=== PATIENT | female | born 1960 | race Caucasian/White ===

== ENCOUNTER 2016-04-08 10:31 | Inpatient (IN) | payer MEDICAID ==
--- NOTE | 2016-04-08 12:08 | RADIOLOGY REPORT ---
HISTORY: Tremor. Fall. Pain. COMPARISON: None FINDINGS: Single portable AP view of the chest was obtained. Cardiomediastinal silhouette is not enlarged. The trachea is midline. Aortic knob is not enlarged. Pu lmonary vascularity is within normal limits. Lungs are adequately aerated. There is no confluent infiltrate or consolidation. There is mild inters titial thickening. No pneumothorax or pleural effusion. There is linear opacification at the left bas e suggestive of platelike atelectasis. . IMPRESSION: 1. Late like atelectasis left base. 2. No confluent infiltrate. Final Electronic Signature: This report was electronically signed by Hunter Avila MD on 04/08/2016 12 :05 PM. [facility] /
[2016-04-08] MEDS ORDERED: MULTIVITAMINS 10 ML VIAL IV ONE (12:13)
[2016-04-08] MEDS ORDERED: THIAMINE HCL 200 MG/2 ML VIAL ONE (12:13)
[2016-04-08] MEDS ORDERED: MAGNESIUM SULFATE 1 GM/2 ML VIAL ONE (12:13)
[2016-04-08] MEDS ORDERED: NORMAL SALINE 1,000 ML IV ONE (12:13)
--- NOTE | 2016-04-08 12:15 | CT REPORT ---
HISTORY: Pain. Fall. COMPARISON: None. TECHNIQUE: This examination was performed using automated exposure control, adjustment of mA or kV according to patient size, and/or use of iterative reconstruction technique. Multiple contiguous axial slices wer e obtained through the thoracic spine without contrast, sagittal and coronal reformations were obtain ed. FINDINGS: The thoracic vertebral body heights are maintained. There is no compression deformity. There is no p aravertebral soft tissue swelling. The vertebral body alignment is maintained. There is no listhesis . There is no lytic or sclerotic lesion. The posterior bony elements appear intact. The facets are in alignment. There is no gross soft tissue abnormality. The disc spaces are adequately maintained. There are degenerative changes with endplate sclerosis and marginal osteophytes throughout the mid t horacic spine from T6-T7 through T10-T11. Visualized portions of the central canal and neural foramin a are adequately maintained. There is subsegmental airspace opacification in the medial basilar segments of both lower lobes suspi cious for infiltrate or pneumonitis. IMPRESSION: 1. No fracture or acute bony abnormality. 2. Degenerative disease in the mid lower thoracic spine. 3. Alveolar opacities in the medial basilar segments of both lower lobe suspicious for infiltrates or pneumonitis. Final Electronic Signature: This report was electronically signed by Hunter Avila MD on 04/08/2016 12 :13 PM. [facility] /
--- NOTE | 2016-04-08 12:19 | CT REPORT ---
HISTORY: Trauma COMPARISON: None. TECHNIQUE: This examination was performed using automated exposure control, adjustment of mA or kV according to patient size, and/or use of iterative reconstruction technique. Axial thin section images obtained f rom skull base through head of the clavicles. Sagittal and coronal reformat images obtained. FINDINGS: The cervical vertebral body heights are maintained. There is no compression deformity. The alignment is maintained. There is no listhesis. There is straightening of the normal cervical lordosis. There is no prevertebral soft tissue swelling. The cervical cephalic alignment is maintained. The odontoid and ring of C1 are intact. Posterior bony elements appear intact. The facets are in alignment. The re is multilevel degenerative disease with disc space and, endplate sclerosis and marginal osteophyte s at C3-4, C4-5, C5-6, and C6-7. The changes are most severe at C5-6 and C6-7. There is narrowing of the central canal and neural foramina bilaterally at C5-6. IMPRESSION: Multilevel level degenerative disc disease from C3-4 through C6-7. The changes are most severe at C5- 6. No acute bony abnormality. Final Electronic Signature: This report was electronically signed by Hunter Avila MD on 04/08/2016 12 :17 PM. [facility] /
[2016-04-08] MEDS ORDERED: LORazepam 0.5 MG TABLET ONE (12:22)
--- NOTE | 2016-04-08 12:24 | CT REPORT ---
HISTORY: Trauma. Fall. Head and neck and back pain. COMPARISON: None. TECHNIQUE: Axial non-contrast images obtained from skull vertex through foramen magnum. FINDINGS: The parenchymal volume is adequately maintained for age. There is no space-occupying mass focal par enchymal deficit or midline shift. The periventricular white matter and deep white matter maintained. Basal ganglia are unremarkable. There is no pathologic extra-axial fluid collection or intracranial hemorrhage. The ventricles and sulci are normal in appearance. There is no skull fracture or depression. Visualized portion of the orbits and paranasal sinuses appe ar unremarkable. IMPRESSION: Negative CT of the brain without contrast. No intracranial hemorrhage. No skull fracture. Results of the head cervical and thoracic spine CTs were called to Dr. Curran at 12:20 PM. Final Electronic Signature: This report was electronically signed by Hunter Avila MD on 04/08/2016 12 :22 PM. [facility] /
[2016-04-08 12:56] LABS: ALKALINE PHOSPHATASE 424 U/L (38-126); ALT 132 U/L (9-52); AST 610 U/L (14-36); BILIRUBIN, DIRECT 3.9 mg/dL (0.0-0.4); BILIRUBIN, TOTAL 5.3 mg/dL (0.2-1.3); BLOOD UREA NITROGEN 5 mg/dL (7-17); CALCIUM 8.6 mg/dL (8.4-10.2); CHLORIDE 98 mmol/L (98-107); CREATININE 0.7 mg/dL (0.5-1.0); EST GLOMERULAR FILTRATION RATE > 60 mL/min; ETHYL ALCOHOL 278 mg/dL (<10); GLUCOSE 91 mg/dL (70-100); MAGNESIUM 1.7 mg/dL (1.6-2.3); POTASSIUM 3.7 mmol/L (3.5-5.1); SODIUM 140 mmol/L (137-145); TOTAL PROTEIN 8.1 g/dL (6.3-8.2)
[2016-04-08 13:01] LABS: BASOPHILS 0.9 % (0.0-2.0); EOSINOPHILS 1.1 % (0.0-6.0); HEMATOCRIT 52.3 % (36.0-48.0); HEMOGLOBIN 17.8 g/dL (12.0-16.0); INR 1.1; LYMPHOCYTES 28.4 % (20.0-40.0); LYMPHOCYTES# 0.9 X 10^3uL (0.8-3.8); MEAN CELL VOLUME 108.5 fL (80.0-100.0); MEAN CORPUSCULAR HEMOGLOBIN 36.9 pg (29.0-35.0); MEAN PLATELET VOLUME 8.7 fL (7.4-10.4); MONOCYTES 13.5 % (2.0-10.0); MONOCYTES# 0.4 X 10^3uL (0.2-1.0); NEUTROPHILS 56.1 % (54.0-75.0); NEUTROPHILS# 1.8 X 10^3uL (2.6-6.7); RED BLOOD COUNT 4.82 X 10^6uL (4.20-6.10); RED CELL DISTRIBUTION WIDTH 15.1 % (11.5-14.5); WHITE BLOOD COUNT 3.1 X 10^3uL (3.9-10.7)
[2016-04-08 13:06] LABS: LIPASE 2646 U/L (23-300)
[2016-04-08 13:09] LABS: PLATELET COUNT 52 X 10^3uL (130-440)
[2016-04-08] MEDS ORDERED: IPRATROPIUM/ALBUTEROL 0.5/3 MG 3 ML AMPUL.NEB INHALATION ONE (13:23)
[2016-04-08] MEDS ORDERED: HOME MEDICATION LIST NEEDED 1 EA EACH MC ONE ×4 (13:53→16:02)
[2016-04-08] MEDS ORDERED: AZITHROMYCIN 250 MG TABLET PO ONE (14:31)
[2016-04-08] MEDS ORDERED: CEFTRIAXONE SODIUM 1,000 MG/10 ML VIAL ONE (14:31)
[2016-04-08] MEDS ORDERED: NORMAL SALINE ADDVANTAGE 100 ML IV ONE (14:32)
[2016-04-08] MEDS ORDERED: ONDANSETRON HCL 4 MG/2 ML VIAL IV PRN (14:40)
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
[2016-04-08] MEDS ORDERED: NORMAL SALINE 1,000 ML IV SCH (15:00)
[2016-04-08] MEDS ORDERED: LEVALBUTEROL 1.25 MG/3 ML VIAL.NEB INHALATION PRN (15:59)
[2016-04-08] MEDS ORDERED: POTASSIUM CHLORIDE/NS 1,000 ML IV SCH (16:00)
[2016-04-08] MEDS ORDERED: MAGNESIUM SULFATE 100 ML IV ONE ×2 (16:02→16:59)
[2016-04-08] MEDS: CHLORDIAZEPOXIDE 25 MG CAPSULE PO SCH ×2 (16:06→20:15)
[2016-04-08] MEDS: MAGNESIUM SULFATE IV SCH ×2 (16:06→17:47)
[2016-04-08] MEDS: KETOROLAC TROMETHAMINE 30 MG/ML VIAL IV PRN ×2 (16:06→22:00)
[2016-04-08] MEDS: DEXTROSE 5% IV SCH ×2 (16:06→17:47)
[2016-04-08] MEDS ORDERED: O2 HUMIDIFIER 650 ML BOTTLE INHALATION ONE (16:59)
[2016-04-08] MEDS: IPRATROPIUM BROMIDE 0.5 MG/2.5 ML NEB INHALATION SCH ×2 (17:47→20:15)
[2016-04-08] MEDS: PANTOPRAZOLE 40 MG VIAL IV SCH (17:47)
[2016-04-08] MEDS ORDERED: IPRATROPIUM/ALBUTEROL 0.5/3 MG 3 ML AMPUL.NEB IH SCH (18:00)
--- NOTE | 2016-04-08 19:30 | HISTORY & PHYSICAL ---
DATE OF ADMISSION: 04/08/16 ATTENDING PHYSICIAN: Ed Martinez MD CHIEF COMPLAINT: Tremor. HISTORY OF PRESENT ILLNESS: The patient is a 55-year-old female with a long history of alcohol use. She has chronic neck and back pain issues. According to her boyfriend, she has not been seen routinely for medical care for the last 4 years or so. About a month ago, medical situation seemed to start getting worse ; perhaps in association with a fall after missing a step coming out of the [employer] here in [place]. She fell at that time and does not recall any acute pain but has had more neck and back pain since. In association with this, she has started drinking more alcohol she states partially to treat the pain. She generally had been drinking about 2 beers per day plus a half of a 1/5 of hard alcohol. Over the last month and particularly over the last week, this has increased to perhaps 3 beers and a full 1/5 of alcohol. In association with this , she has noticed a significant increased in a course tremor with intention involving her face, jaw, bilateral arms and her legs. This has been severe enough to make it difficult for her to keep her balance and to ambulate, and she states that this has contributed to another fall about 3 days ago in the bathroom where she fell and struck the left side of her face. She states that she did not lose consciousness, but also does not have any significant recollection of what happened after her fall. Her boyfriend found her sitting in an armchair when he returned home with evidence of the injury. In association with this, she has had an increase in cough which has been loose with increased shortness of breath and perhaps some wheezing over the last week or two. Of note, she does continue to smoke. She has had mild abdominal pain which she describes as being diffuse with waxing and waning intensity over the last month or so. She has had nausea and vomiting, but she generally attributes this to sinus drainage. She states that she has also had some diarrhea over the last month or two, but is unclear as to severity and frequency. She denies any blood in her stool or black tarry stool. With regard to her chronic pain in her neck and back, she does not generally take medications for this. She denies any recent Tylenol. She has had Advil a couple of times over the last week. She does not take any stronger pain medications. She does occasionally use marijuana for pain perhaps once per day in smoked form. With regard to her thyroid, she has a long history of hypothyroidism for the last 15+ years. However, she had not been taking thyroid medications until recently. She states that over the last 2-3 weeks, she restarted her Levothyroxine at 125 mcg daily without any laboratory testing. It is unclear to me whether the tremor predated this. She came into the Emergency Department today for increased tremor. However, with further evaluation in the Emergency Department she was found to have multiple problems including evidence of current alcohol intoxication, evidence of already alcohol withdrawal, hepatitis, pancreatitis, bilateral basilar pneumonia, leukopenia, thrombocytopenia, pancreatitis. She is now being admitted for further evaluation and treatment. She states that she realizes that she has a problem with alcohol and she is ready to stop drinking. She has never been told before that she had a problem with alcohol or that she was an alcoholic or that she should quit per her recollection. She does smoke about a pack of cigarettes per day. She denies any problems with prior alcohol withdrawal. She has never had alcohol withdrawal seizures or DTs per her recollection. PAST MEDICAL HISTORY 1. Alcoholism. 2. Hypothyroidism. 3. Chronic neck and back pain. ALLERGIES: None. MEDICATIONS Levothyroxine 125 mcg p.o. daily. Advil 240 mg p.o. t.i.d. PRN with rare use. SOCIAL HISTORY: Tobacco at pack of cigarettes per day. Alcohol is currently at 2-3 beers plus 1/5 of hard alcohol daily. Marijuana once daily in smoked form. Denies other illicit drugs. Lives here in [place] with her boyfriend. FAMILY HISTORY: Noncontributory. REVIEW OF SYSTEMS: Pertinent positives and negatives as above. Remainder negative. PHYSICAL EXAMINATION VITAL SIGNS: Temperature in the Emergency Department was listed as afebrile, blood pressure 145/111, pulse 58, respiratory rate 18 and 96% on 2 liters. She was initially saturating in the mid 80s on room air. GENERAL: Chronically ill-appearing female appearing older than her stated age. Has a tremor but otherwise in no significant distress and no use of accessory muscles. HEENT: Normocephalic. She has evidence of an abrasion involving her left maxillary region with minimal tenderness but no other evidence of trauma. Her pupils are equal, round and reactive to light with conjunctival injection bilaterally. Oropharynx shows dry mucous membranes. NECK: Supple. No lymphadenopathy. No thyromegaly or nodules. CHEST: Bibasilar rales. Decreased breath sounds throughout. No wheezes or rales. No changes in tactile femoris. CARDIAC: Regular rate and rhythm somewhat distant. Did not hear an S3 or S4 or murmur. ABDOMEN: Positive bowel sounds. Soft and mildly nondistended. Tender to palpation in the epigastrium and right upper quadrant with evidence of hepatosplenomegaly 1-2 cm below the right costal margin. She has no rebound or rigidity. No periumbilical varicosities. BACK: No costovertebral angle tenderness. EXTREMITIES: Mild acrocyanosis. Nontender. No cords. Negative Homans. SKIN: Scattered ecchymoses. Mild palmar erythema. NEUROLOGIC: Patient was alert and oriented x3. Light touch sensation appears to be intact throughout. Strength is 5/5 in the bilateral upper and lower extremities with exception of shoulder forward flexion and abduction which is 4/ 5 and hip flexion bilaterally which is 4/5. She does have what appears to be an intention tremor. When she is completely relaxed, the tremor resolves. However, with any increase in muscle tension, she begins to have bilateral upper extremity more than face, more than lower extremity course wide amplitude tremor. This appears to be rather symmetric. Muscle tone is normal. LABORATORY STUDIES: Her white blood cell count is 3.1 with a normal differential with exception of monocytes at 13.5%. Hematocrit is elevated at 52.3 with an MCV of 108 and an RDW of 15.1. Her platelet count is 52. Her INR is 1.1. Chemistry panel shows normal sodium and potassium with a BUN and creatinine of 5 and 0.7 respectively. Her magnesium is 1.7. Her phosphorus is 4.3. LFTs is markedly abnormal with an AST of 610 and an ALT 132. Total bilirubin is 5.3 with a direct bilirubin of 3.9. Alkaline phosphatase is elevated at 424. Albumin is 4.0. Lipase is 2,646. Toxicology study shows an ethanol alcohol level of 278. IMAGING: X-rays, preliminary read from radiology as below. Chest x-ray showing bilateral lower lobe infiltrate consistent with mild pneumonitis bilaterally. No pleural effusion. CT scans of the head, neck and thoracic spine showing no evidence of acute [employer] process. She does have multilevel disease with degenerative joint disease and degenerative disk disease throughout her thoracic spine. In her cervical spine, she has some focal moderate areas of foraminal stenosis but no evidence of fracture. ASSESSMENT AND PLAN 1. Pneumonia: Bilateral. Possibly aspiration. Presenting with hypoxemia, productive cough and wheezing. Blood cultures have already been drawn. She has been started on Ceftriaxone and Azithromycin and will continue these for now. Hold off on Clindamycin considering no evidence of air fluid levels. No indication for steroids at this time. Bronchodilator. We will use Xopenex considering tremor. Oxygen as needed. Incentive spirometry. Will discuss vaccines prior to discharge. 2. Pancreatitis: Presumably acute on chronic. Likely related to alcohol. However , we do need to rule out gallstone pancreatitis. Will check right upper quadrant ultrasound. NPO status. IV fluid resuscitation. Antiemetics as needed. From a pain standpoint, this is challenging. We will be giving her chlordiazepoxide for alcohol withdrawal, so it would be best to avoid the overlapping toxicities with opioids. Best to avoid Tylenol considering hepatitis issues. Will use Toradol as needed. She does not have significant abdominal pain at this time, and will try to avoid medications if possible. Reassess status in the morning, and may be able to start advancing her diet. 3. Alcohol withdrawal: Patient presenting still with a positive alcohol level at 278 but already with some evidence of alcohol withdrawal with hypertension in the Emergency Department and significant tremor. Will follow with CIWA scores. Chlordiazepoxide at 25 mg q.6 scheduled, and with additional doses based upon her scores every hour as needed. Gentle IV fluid resuscitation. She already received a banana bag in the Emergency Department for vitamin supplementation. Will continue with multivitamin, thiamin and folate in the morning orally. Her phosphorus level is normal. Her magnesium level is borderline low, and we will replace this. Her potassium level is borderline low , and will replace this in her IV fluids. We spent considerable time discussing her alcoholism and the number of potentially life threatening processes which are currently taking place in her body. She intends to quit drinking. Will have case management and social work work with her with regard to outpatient versus inpatient rehab resources for when she is discharged. 4. Hepatitis: Presumably alcoholic with significantly elevated AST to ALT ratio. Elevated bilirubin level. Will be checking right upper quadrant ultrasound to verify no evidence of gallstone disease. Alcohol abstinence has been recommended. 5. Leukocytosis with thrombocytopenia: Likely bone marrow suppression from alcohol use. Using Toradol at low dose as above, but will try to limit this due to the thrombocytopenia and will reassess blood counts in the morning. May need to stop if any evidence of bleeding. 6. Hypothyroidism: Current status is unknown, and over treatment may be contributing to her tremor. Will check TSH with ER laboratory studies, and make decision about further thyroid dosing based upon this. 7. Chronic pain: Chronic neck pain and thoracic spine pain with evidence of degenerative changes and probably some degree of neuroforaminal stenosis in the cervical spine. This will need to be managed in the outpatient setting with specialty. 8. Tremor: This was the patients primary reason for coming into the Emergency Department. Etiology for this is unclear. Could represent alcohol withdrawal. However, her alcohol level is still positive and the tremor is rather course for this. Does not appear parkinsonian as this is an intention tremor. Much more course than would be expected for a benign-essential tremor. Suspect [employer] toxicity from alcohol as a possible culprit. No significant electrolyte abnormalities. At this time, the primary treatment will be the treatment of alcohol withdrawal, no further alcohol and monitoring. Physical therapy assessment will be undertaken. May need to see Neurology depending upon her course. COR STATUS: Patient is full cor, full tube. DVT PROPHYLAXIS: Will hold off on Lovenox considering the need to administer Toradol for pain and her thrombocytopenia. SCD stockings. Copies to: Paige BOYLE
[2016-04-08] MEDS: NICOTINE 7 MG PATCH TRANSDERM SCH (20:15)
[2016-04-09] MEDS ORDERED: POTASSIUM CHLORIDE/NS 1,000 ML IV ONE (01:42)
[2016-04-09] MEDS: CHLORDIAZEPOXIDE 25 MG CAPSULE PO SCH ×5 (01:48→21:09)
[2016-04-09] MEDS ORDERED: POLYVINYL ALCOHOL 1.4% OPHTH 75 DROP/15 ML BTL ONE (05:39)
[2016-04-09] MEDS: POLYVINYL ALCOHOL 1.4% OPHTH 75 DROP/15 ML BTL OPHTHALMIC PRN (05:40)
[2016-04-09] MEDS: PANTOPRAZOLE 40 MG VIAL IV SCH (06:23)
[2016-04-09] MEDS: LEVOTHYROXINE 125 MCG TABLET PO SCH (06:23)
[2016-04-09 06:52] LABS: BASOPHILS 0.8 % (0.0-2.0); EOSINOPHILS 0.7 % (0.0-6.0); HEMATOCRIT 46.7 % (36.0-48.0); HEMOGLOBIN 15.8 g/dL (12.0-16.0); LYMPHOCYTES 11.1 % (20.0-40.0); LYMPHOCYTES# 0.3 X 10^3uL (0.8-3.8); MEAN CORPUS. HGB CONCENTRATION 33.9 g/dL (32.0-36.0); MEAN CORPUSCULAR HEMOGLOBIN 36.8 pg (29.0-35.0); MEAN PLATELET VOLUME 8.4 fL (7.4-10.4); MONOCYTES 11.1 % (2.0-10.0); MONOCYTES# 0.3 X 10^3uL (0.2-1.0); NEUTROPHILS 76.3 % (54.0-75.0); NEUTROPHILS# 2.5 X 10^3uL (2.6-6.7); RED CELL DISTRIBUTION WIDTH 15.6 % (11.5-14.5); WHITE BLOOD COUNT 3.1 X 10^3uL (3.9-10.7)
[2016-04-09 06:59] LABS: MEAN CELL VOLUME 108.6 fL (80.0-100.0); PLATELET COUNT 44 X 10^3uL (130-440)
[2016-04-09 07:00] LABS: ALBUMIN 3.5 g/dL (3.5-5.0); BILIRUBIN, DIRECT 4.9 mg/dL (0.0-0.4); BILIRUBIN, TOTAL 6.5 mg/dL (0.2-1.3); MAGNESIUM 2.2 mg/dL (1.6-2.3); PHOSPHORUS 2.7 mg/dL (2.5-4.5); TOTAL PROTEIN 7.1 g/dL (6.3-8.2)
[2016-04-09 07:02] LABS: BLOOD UREA NITROGEN 5 mg/dL (7-17); CALCIUM 7.6 mg/dL (8.4-10.2); CHLORIDE 102 mmol/L (98-107); CREATININE 0.6 mg/dL (0.5-1.0); EST GLOMERULAR FILTRATION RATE > 60 mL/min; GLUCOSE 90 mg/dL (70-100); SODIUM 136 mmol/L (137-145)
[2016-04-09] MEDS ORDERED: AZITHROMYCIN 250 MG TABLET PO SCH (09:00)
[2016-04-09] MEDS ORDERED: MULTIVITAMINS THERAPEUTIC 1 TABLET PO SCH (09:00)
[2016-04-09] MEDS ORDERED: THIAMINE HCL 50 MG TABLET PO SCH (09:00)
[2016-04-09] MEDS: IPRATROPIUM BROMIDE 0.5 MG/2.5 ML NEB INHALATION SCH ×4 (09:09→21:08)
--- NOTE | 2016-04-09 09:14 | PROGRESS NOTE: IM APSO ---
Assessment and Plan - Date of Encounter Date of Encounter: 04/09/16 (1) Pancreatitis, alcoholic, acute Status: Acute Assessment and plan: No significant improvement overnight. Remains nothing by mouth status. Interestingly, without significant pain, nausea, or vomiting. Lipase level is more elevated. Likely related to alcohol. However, with abnormal LFTs and elevated bilirubin which is worse today, concern for possible concurrent cholelithiasis. Awaiting ultrasound results. Continue current treatment regimen with nothing by mouth status, IV fluid resuscitation. Continue to reinforce the need for complete alcohol abstinence. If not improving, and if ultrasound is not clarifying, may need CT scan. Current Visit: Yes (2) Hepatitis, alcoholic, acute Status: Acute Assessment and plan: See discussion above. Transaminases are a little better this morning, but bilirubin and direct bilirubin are worse. Right upper quadrant ultrasound is pending. Continue supportive care. Continue to reinforce the need for alcohol abstinence. Depending upon ultrasound result, may consider looking into other causes for hepatitis. That being said, the most likely culprit is her alcoholism. Current Visit: Yes (3) Pneumonia, bacterial Status: Acute Assessment and plan: Clinically, doing reasonably well. No fever. Low O2 requirement. No wheezing at this time. Continue antibiotics. Continue bronchodilators. Current Visit: Yes (4) COPD exacerbation Status: Acute Assessment and plan: See above. Current Visit: Yes (5) Leukopenia Status: Acute Assessment and plan: Likely related to bone marrow suppression from alcoholism. No significant worsening. Current Visit: Yes (6) Thrombocytopenia Status: Acute Assessment and plan: Slightly worse overnight. Continuing to avoid Lovenox. Will stop Toradol if this drops below 40. Again, likely related to bone marrow suppression from chronic alcohol intake. Current Visit: Yes (7) Hypertension, benign Status: Acute Assessment and plan: Does not carry a diagnosis. Elevated blood pressures could represent alcohol withdrawal. Follow for now with treatment of such. Consider possible antihypertensive upon discharge if appropriate. Current Visit: Yes (8) Hypothyroidism (acquired) Status: Acute Assessment and plan: It sounds like she has been taking levothyroxine at 125 g daily for the last month. TSH is elevated. Thyroid medication has been restarted today. Consider increasing dose upon discharge if tremor is reasonably controlled. Current Visit: Yes (9) Chronic pain syndrome Status: Acute Assessment and plan: Chronic neck and thoracic spine pain. Toradol for now, although we may need to discontinue this due to thrombocytopenia if this worsens. Will require further outpatient management. Current Visit: Yes (10) Tremor Status: Acute Assessment and plan: Etiology still unclear. Thyroid is not overtreated. Likely related to alcohol withdrawal but no improvement with Librium. 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 CT scan of the brain did not show other explanation. Depending upon course, may need MRI scan, neurology consultation. Current Visit: Yes (11) Alcohol withdrawal Status: Acute Assessment and plan: Still with significant tremor, elevated blood pressure, mild confusion ( although no hallucinations). Increase scheduled chlordiazepoxide. Continue as needed based upon CIWA scores. Continue supportive care. Current Visit: Yes (12) DVT prophylaxis Status: Acute Assessment and plan: Lovenox contraindicated due to thrombocytopenia. SCD stockings. Current Visit: Yes - Time Spent With Patient Total time spent with greater than 50% in coordination of care (as documented) at patient's floor/unit and/or counseling patient: 25 - 35 minutes Estimated anticipated discharge: 2-3 days IM: PN Subjective General: confusion (mild, no hallucinations), tremor (no improvement), no good appetite, no fever, no chills HEENT: no headache Cardiovascular: no chest pain, no palpitations Respiratory: cough (improved), wheeze (improved) Gastrointestinal: abdominal pain (minimal now), bloating, no nausea, no vomiting , no diarrhea (not since being here) Genitourinary: no dysuria Musculoskeletal: pain (chronic neck and mid back) Integumentary: no rashes Neurological: no headache IM: PN Objective Exam - I&O/Vital Signs I&O: Intake & Output 04/08/16 04/09/16 04/09/16 21:59 05:59 13:59 Intake Total 2200 Output Total 200 500 Balance -200 1700 Weight 78.5 kg 77 kg Intake: IV 1700 Left Antecubital 1700 Oral 500 Output: Urine 200 500 Other: Urine Appearance Cloudy Clear Urine Color Light Marsha Dark Marsha Voiding Method Bedside Commode Bedside Commode # Voids 2 Vital Signs: Last Vital Signs Temp 36.7 C 04/09/16 06:50 Pulse 84 04/09/16 06:50 Resp 14 04/09/16 06:50 BP 145/98 04/09/16 06:50 Pulse Ox 97 04/09/16 06:50 Oxygen Flow Rate 3 Oxygen Delivery Method Nasal Cannula - Constitutional General appearance: Present: disheveled, mild distress (uncomfortable with tremor) - Head Head exam: Present: normal inspection. Absent: atraumatic (abrasions to left zygomatic and maxillary region) - Eye Eye exam: Present: conjunctival injection, PERRL - ENT ENT exam: Present: mucous membranes dry - Neck Neck exam: Present: full ROM - Respiratory Respiratory exam: Present: decreased breath sounds, rales (left greater than right base). Absent: accessory muscle use, wheezes - Cardiovascular Cardiovascular exam: Present: RRR. Absent: S3, S4 - GI/Abdominal GI/Abdominal exam: Present: distended, hypoactive bowel sounds, organomegaly ( mild hepatomegaly), soft. Absent: rebound, rigid, tenderness - Extremities Exam Extremities exam: Absent: calf tenderness, edema - Neurological Exam Neurological exam: Present: oriented X3, other (coarse tremor which is worse with intention involving jaw, bilateral upper extremities, less so lower extremities) - Skin Skin exam: Present: abrasion ({). Absent: rash - Allied Health Notes Allied health notes reviewed: nursing - Lab Labs: Laboratory Last Values WBC 3.1 X 10^3uL (3.9-10.7) L 04/09/16 05:55 RBC 4.30 X 10^6uL (4.20-6.10) 04/09/16 05:55 Hgb 15.8 g/dL (12.0-16.0) 04/09/16 05:55 Hct 46.7 % (36.0-48.0) 04/09/16 05:55 MCV 108.6 fL (80.0-100.0) H 04/09/16 05:55 MCH 36.8 pg (29.0-35.0) H 04/09/16 05:55 MCHC 33.9 g/dL (32.0-36.0) 04/09/16 05:55 RDW 15.6 % (11.5-14.5) H 04/09/16 05:55 Plt Count 44 X 10^3uL (130-440) L* 04/09/16 05:55 MPV 8.4 fL (7.4-10.4) 04/09/16 05:55 Neutrophils % 76.3 % (54.0-75.0) H 04/09/16 05:55 Lymphocytes % 11.1 % (20.0-40.0) L 04/09/16 05:55 Eosinophils % 0.7 % (0.0-6.0) 04/09/16 05:55 Basophils % 0.8 % (0.0-2.0) 04/09/16 05:55 Neutrophils # 2.5 X 10^3uL (2.6-6.7) L 04/09/16 05:55 Lymphocytes # 0.3 X 10^3uL (0.8-3.8) L 04/09/16 05:55 Monocytes 11.1 % (2.0-10.0) H 04/09/16 05:55 Monocytes # 0.3 X 10^3uL (0.2-1.0) 04/09/16 05:55 Eosinophils # 0.0 X 10^3uL (0.0-0.4) 04/09/16 05:55 Basophils # 0.0 X 10^3uL (0.0-0.1) 04/09/16 05:55 PT 14.8 sec (13.0-16.6) 04/08/16 12:12 INR 1.1 04/08/16 12:12 Sodium 136 mmol/L (137-145) L 04/09/16 05:55 Potassium 4.0 mmol/L (3.5-5.1) 04/09/16 05:55 Chloride 102 mmol/L (98-107) 04/09/16 05:55 Carbon Dioxide 23 mmol/L (22-30) 04/09/16 05:55 BUN 5 mg/dL (7-17) L 04/09/16 05:55 Creatinine 0.6 mg/dL (0.5-1.0) 04/09/16 05:55 GFR Calculation > 60 mL/min 04/09/16 05:55 Glucose 90 mg/dL (70-100) 04/09/16 05:55 Calcium 7.6 mg/dL (8.4-10.2) L 04/09/16 05:55 Phosphorus 2.7 mg/dL (2.5-4.5) 04/09/16 05:55 Magnesium 2.2 mg/dL (1.6-2.3) 04/09/16 05:55 Total Bilirubin 6.5 mg/dL (0.2-1.3) H 04/09/16 05:55 Direct Bilirubin 4.9 mg/dL (0.0-0.4) H 04/09/16 05:55 AST 495 U/L (14-36) H 04/09/16 05:55 ALT 105 U/L (9-52) H 04/09/16 05:55 Alkaline Phosphatase 372 U/L (38-126) H 04/09/16 05:55 Creatine Kinase 86 U/L (30-135) 04/09/16 05:55 Total Protein 7.1 g/dL (6.3-8.2) 04/09/16 05:55 Albumin 3.5 g/dL (3.5-5.0) 04/09/16 05:55 Lipase 3115 U/L (23-300) H 04/09/16 05:55 TSH 10.30 uIU/mL (0.47-4.68) H D 04/08/16 12:12 Ethyl Alcohol 278 mg/dL (<10) H 04/08/16 12:12 Quality Questions - VTE Prophylaxis Assessment VTE Present on Admission?: No Patient at risk for venous thromboembolism?: Yes VTE Risk Level: High Risk VTE Medical Contraindication: Medical contraindication
[2016-04-09] MEDS: FOLIC ACID 1 MG TABLET PO SCH (09:22)
[2016-04-09] MEDS: NICOTINE 7 MG PATCH TRANSDERM SCH (09:32)
[2016-04-09] MEDS ORDERED: HOME MEDICATION LIST NEEDED 1 EA EACH MC ONE (09:34)
[2016-04-09] MEDS ORDERED: POTASSIUM CHLORIDE/NS 1,000 ML IV SCH (10:00)
[2016-04-09] MEDS: CHLORDIAZEPOXIDE 25 MG CAPSULE PO PRN ×3 (10:39→18:50)
[2016-04-09] MEDS ORDERED: FOLIC ACID IV ONE (11:00)
[2016-04-09] MEDS ORDERED: THIAMINE HCL IV ONE (11:00)
[2016-04-09] MEDS ORDERED: MULTIVITAMINS IV ONE (11:00)
[2016-04-09] MEDS ORDERED: NORMAL SALINE IV ONE (11:00)
[2016-04-09] MEDS: AZITHROMYCIN 250 MG in NORMAL SALINE 250 ML IV SCH (11:51)
[2016-04-09] MEDS: CEFTRIAXONE SODIUM 1,000 MG in NORMAL SALINE MINI-BAG+ 100 ML IV SCH (15:46)
[2016-04-09] MEDS ORDERED: NORMAL SALINE 250 ML IV ONE (15:52)
[2016-04-10] MEDS: CHLORDIAZEPOXIDE 25 MG CAPSULE PO SCH ×4 (02:48→20:46)
[2016-04-10 05:51] LABS: BASOPHIL# 0.1 X 10^3uL (0.0-0.1); EOSINOPHILS 1.8 % (0.0-6.0); EOSINOPHILS# 0.1 X 10^3uL (0.0-0.4); HEMATOCRIT 49.7 % (36.0-48.0); HEMOGLOBIN 16.7 g/dL (12.0-16.0); LYMPHOCYTES 16.5 % (20.0-40.0); LYMPHOCYTES# 0.7 X 10^3uL (0.8-3.8); MEAN CELL VOLUME 109.6 fL (80.0-100.0); MEAN CORPUS. HGB CONCENTRATION 33.6 g/dL (32.0-36.0); MEAN CORPUSCULAR HEMOGLOBIN 36.8 pg (29.0-35.0); MEAN PLATELET VOLUME 8.4 fL (7.4-10.4); MONOCYTES 12.5 % (2.0-10.0); MONOCYTES# 0.5 X 10^3uL (0.2-1.0); NEUTROPHILS 66.2 % (54.0-75.0); NEUTROPHILS# 2.6 X 10^3uL (2.6-6.7); PLATELET COUNT 51 X 10^3uL (130-440); RED BLOOD COUNT 4.54 X 10^6uL (4.20-6.10); RED CELL DISTRIBUTION WIDTH 15.4 % (11.5-14.5)
[2016-04-10 06:01] LABS: A/G RATIO 0.9; ALBUMIN 3.6 g/dL (3.5-5.0); ALKALINE PHOSPHATASE 425 U/L (38-126); ALT 108 U/L (9-52); AST 420 U/L (14-36); BILIRUBIN, TOTAL 7.9 mg/dL (0.2-1.3); BLOOD UREA NITROGEN 5 mg/dL (7-17); CALCIUM 8.5 mg/dL (8.4-10.2); CHLORIDE 104 mmol/L (98-107); CREATININE 0.6 mg/dL (0.5-1.0); EST GLOMERULAR FILTRATION RATE > 60 mL/min; GLUCOSE 80 mg/dL (70-100); LIPASE 1980 U/L (23-300); PHOSPHORUS 1.3 mg/dL (2.5-4.5); POTASSIUM 4.3 mmol/L (3.5-5.1); SODIUM 133 mmol/L (137-145); TOTAL PROTEIN 7.5 g/dL (6.3-8.2)
[2016-04-10] MEDS: LEVOTHYROXINE 125 MCG TABLET PO SCH (06:44)
[2016-04-10] MEDS: PANTOPRAZOLE 40 MG VIAL IV SCH (06:44)
[2016-04-10] MEDS ORDERED: POTASSIUM PHOSPHATE IV ONE (07:58)
[2016-04-10] MEDS ORDERED: NORMAL SALINE IV ONE (07:58)
[2016-04-10] MEDS: IPRATROPIUM BROMIDE 0.5 MG/2.5 ML NEB INHALATION SCH ×4 (08:06→20:22)
--- NOTE | 2016-04-10 08:10 | PROGRESS NOTE: IM APSO ---
Assessment and Plan - Date of Encounter Date of Encounter: 04/10/16 (1) Pancreatitis, alcoholic, acute Status: Acute Assessment and plan: Lipase is better. Remains nothing by mouth status. Interestingly, without significant pain, nausea, or vomiting. Likely related to alcohol. However, with abnormal LFTs and elevated bilirubin which is worse again today. Ultrasound showing gallbladder sludge but no clear evidence of ductal dilatation or inflammation. Considering persistent LFT abnormalities including further increase in bilirubin, will proceed with MRCP. Continue current treatment regimen with nothing by mouth status, IV fluid resuscitation, but might start clear liquids later today considering how well she is doing symptomatically. Continue to reinforce the need for complete alcohol abstinence. Considering her level of debilitation, will order PT and OT consultation with treatment. Current Visit: Yes (2) Hepatitis, alcoholic, acute Status: Acute Assessment and plan: See discussion above. Transaminases are a little better this morning, but bilirubin and direct bilirubin are worse again. Right upper quadrant ultrasound is positive for fatty infiltration of the liver and gallbladder sludge but no ductal dilatation. MRCP being done as above. Continue supportive care. Continue to reinforce the need for alcohol abstinence. Current Visit: Yes (3) Pneumonia, bacterial Status: Acute Assessment and plan: Clinically, doing reasonably well. No fever. Now saturating well on room air. No wheezing at this time. Continue antibiotics. Continue bronchodilators. Current Visit: Yes (4) COPD exacerbation Status: Acute Assessment and plan: See above. Current Visit: Yes (5) Leukopenia Status: Acute Assessment and plan: Likely related to bone marrow suppression from alcoholism. No significant worsening. Current Visit: Yes (6) Thrombocytopenia Status: Acute Assessment and plan: Slightly worse overnight. Continuing to avoid Lovenox. Again, likely related to bone marrow suppression from chronic alcohol intake. Current Visit: Yes (7) Hypertension, benign Status: Acute Assessment and plan: Does not carry a diagnosis. Elevated blood pressures could represent alcohol withdrawal but persisting in spite of treatment with Librium. Will add propranolol as this will help with blood pressure and may help with her tremor. Current Visit: Yes (8) Hypothyroidism (acquired) Status: Acute Assessment and plan: It sounds like she has been taking levothyroxine at 125 g daily for the last month. TSH is elevated. Thyroid medication has been restarted yesterday. Consider increasing dose upon discharge if tremor is reasonably controlled. Current Visit: Yes (9) Chronic pain syndrome Status: Acute Assessment and plan: Chronic neck and thoracic spine pain. She has been on Toradol since admission. Will stop today considering risks versus benefits. Will require further outpatient management. Current Visit: Yes (10) Tremor Status: Acute Assessment and plan: Etiology still unclear. Thyroid is not overtreated. Likely related to alcohol withdrawal but not resolving with Librium. Could represent [employer] RESIDENT toxicity/damage from chronic alcoholism. CT scan of the brain did not show other explanation. MRI scan of the brain with and without contrast today. May need neurology consult. Current Visit: Yes (11) Alcohol withdrawal Status: Acute Assessment and plan: Still with significant tremor, elevated blood pressure, mild confusion ( although no hallucinations). Continue current dose of Librium. Will start to decrease dose tomorrow. Continue as needed based upon CIWA scores. Continue supportive care including ongoing IV fluids, IV phos today. Current Visit: Yes (12) DVT prophylaxis Status: Acute Assessment and plan: Lovenox contraindicated due to thrombocytopenia. SCD stockings. Current Visit: Yes - Time Spent With Patient Total time spent with greater than 50% in coordination of care (as documented) at patient's floor/unit and/or counseling patient: 25 - 35 minutes Estimated anticipated discharge: 2 days IM: PN Subjective General: confusion (mild, no hallucinations, better), tremor (perhaps mild improvement on higher dose of librium), no good appetite, no fever, no chills HEENT: no headache Cardiovascular: no chest pain, no palpitations Respiratory: cough (min), no wheeze Gastrointestinal: abdominal pain (minimal now), bloating, no nausea, no vomiting , no diarrhea ( ), no constipation Genitourinary: no dysuria Musculoskeletal: pain (chronic neck and thoracic spine) Integumentary: no rashes Neurological: no headache IM: PN Objective Exam - I&O/Vital Signs I&O: Intake & Output 04/09/16 04/10/16 04/10/16 21:59 05:59 13:59 Intake Total 1250 2628 Output Total 300 1225 Balance 950 1403 Weight 77 kg Intake: IV 1200 2628 Left Antecubital 1200 2628 Oral 50 0 Output: Urine 300 1225 Other: Urine Appearance Clear Clear Urine Color Light Marsha Light Marsha Voiding Method Toilet Bedside Commode # Voids 3 3 Vital Signs: Last Vital Signs Temp 37.3 C 04/10/16 06:31 Pulse 75 04/10/16 06:31 Resp 18 04/10/16 06:31 BP 122/100 04/10/16 06:31 Pulse Ox 93 04/10/16 06:31 Oxygen Flow Rate 0 Oxygen Delivery Method Room Air - Constitutional General appearance: Absent: mild distress - Head Head exam: Present: normocephalic. Absent: atraumatic (abrasions to left zygomatic and maxillary region) - Eye Eye exam: Present: conjunctival injection (improved), PERRL, scleral icterus ( mild) - ENT ENT exam: Present: mucous membranes dry - Neck Neck exam: Present: full ROM - Respiratory Respiratory exam: Present: decreased breath sounds, rales (left greater than right base). Absent: accessory muscle use, wheezes - Cardiovascular Cardiovascular exam: Present: RRR. Absent: S3, S4 - GI/Abdominal GI/Abdominal exam: Present: distended, hypoactive bowel sounds, organomegaly ( mild hepatomegaly), soft. Absent: rebound, rigid, tenderness - Extremities Exam Extremities exam: Present: edema (trace ankle). Absent: calf tenderness - Neurological Exam Neurological exam: Present: oriented X3, other (coarse tremor involving jaw, bilateral upper extremities, less so lower extremities--no tremor when sleeping) - Skin Skin exam: Present: abrasion ({). Absent: rash - Allied Health Notes Allied health notes reviewed: nursing - Lab Labs: Laboratory Last Values WBC 4.0 X 10^3uL (3.9-10.7) 04/10/16 05:00 RBC 4.54 X 10^6uL (4.20-6.10) 04/10/16 05:00 Hgb 16.7 g/dL (12.0-16.0) H 04/10/16 05:00 Hct 49.7 % (36.0-48.0) H 04/10/16 05:00 MCV 109.6 fL (80.0-100.0) H 04/10/16 05:00 MCH 36.8 pg (29.0-35.0) H 04/10/16 05:00 MCHC 33.6 g/dL (32.0-36.0) 04/10/16 05:00 RDW 15.4 % (11.5-14.5) H 04/10/16 05:00 Plt Count 51 X 10^3uL (130-440) L 04/10/16 05:00 MPV 8.4 fL (7.4-10.4) 04/10/16 05:00 Neutrophils % 66.2 % (54.0-75.0) 04/10/16 05:00 Lymphocytes % 16.5 % (20.0-40.0) L 04/10/16 05:00 Eosinophils % 1.8 % (0.0-6.0) 04/10/16 05:00 Basophils % 3.0 % (0.0-2.0) H 04/10/16 05:00 Neutrophils # 2.6 X 10^3uL (2.6-6.7) 04/10/16 05:00 Lymphocytes # 0.7 X 10^3uL (0.8-3.8) L 04/10/16 05:00 Monocytes 12.5 % (2.0-10.0) H 04/10/16 05:00 Monocytes # 0.5 X 10^3uL (0.2-1.0) 04/10/16 05:00 Eosinophils # 0.1 X 10^3uL (0.0-0.4) 04/10/16 05:00 Basophils # 0.1 X 10^3uL (0.0-0.1) 04/10/16 05:00 PT 14.8 sec (13.0-16.6) 04/08/16 12:12 INR 1.1 04/08/16 12:12 Sodium 133 mmol/L (137-145) L 04/10/16 05:00 Potassium 4.3 mmol/L (3.5-5.1) 04/10/16 05:00 Chloride 104 mmol/L (98-107) 04/10/16 05:00 Carbon Dioxide 21 mmol/L (22-30) L 04/10/16 05:00 BUN 5 mg/dL (7-17) L 04/10/16 05:00 Creatinine 0.6 mg/dL (0.5-1.0) 04/10/16 05:00 GFR Calculation > 60 mL/min 04/10/16 05:00 Glucose 80 mg/dL (70-100) 04/10/16 05:00 Calcium 8.5 mg/dL (8.4-10.2) 04/10/16 05:00 Phosphorus 1.3 mg/dL (2.5-4.5) L 04/10/16 05:00 Magnesium 2.0 mg/dL (1.6-2.3) 04/10/16 05:00 Total Bilirubin 7.9 mg/dL (0.2-1.3) H 04/10/16 05:00 Direct Bilirubin 4.9 mg/dL (0.0-0.4) H 04/09/16 05:55 AST 420 U/L (14-36) H 04/10/16 05:00 ALT 108 U/L (9-52) H 04/10/16 05:00 Alkaline Phosphatase 425 U/L (38-126) H 04/10/16 05:00 Creatine Kinase 86 U/L (30-135) 04/09/16 05:55 Total Protein 7.5 g/dL (6.3-8.2) 04/10/16 05:00 Albumin 3.6 g/dL (3.5-5.0) 04/10/16 05:00 Albumin/Globulin Ratio 0.9 04/10/16 05:00 Lipase 1980 U/L (23-300) H 04/10/16 05:00 TSH 10.30 uIU/mL (0.47-4.68) H D 04/08/16 12:12 Ethyl Alcohol 278 mg/dL (<10) H 04/08/16 12:12
[2016-04-10] MEDS: POTASSIUM CHLORIDE/NS 1,000 ML IV SCH (08:49)
[2016-04-10] MEDS: FOLIC ACID 1 MG TABLET PO SCH (08:50)
[2016-04-10] MEDS: propRANOLol HCL 10 MG TABLET PO SCH ×3 (08:50→20:22)
[2016-04-10] MEDS: NICOTINE 7 MG PATCH TRANSDERM SCH (13:07)
[2016-04-10] MEDS: AZITHROMYCIN 250 MG in NORMAL SALINE 250 ML IV SCH (13:07)
--- NOTE | 2016-04-10 13:22 | MRI REPORT ---
HISTORY: Hepatitis and pancreatitis. COMPARISON: None. TECHNIQUE: Multiplanar multisequence routine MRI abdomen pre and post 20 mL IV Magnevist. In addition MRCP imagi ng was performed and reviewed. FINDINGS: Study is significantly limited secondary to excessive patient motion. Diffuse fatty infiltration of the liver. Within limitations of the motion degradation examination the re is no abnormal liver signal abnormality or enhancement. Pancreas is normal in signal intensity without evidence of focal abnormal enhancement. No peripancrea tic edema. No obvious cholelithiasis or evidence of sludge. No evidence of intra or extrahepatic ductal or ducta l dilatation. No evidence of choledocholithiasis. No free fluid within the abdomen. Tiny left renal cyst otherwise the kidneys are unremarkable. The bilateral adrenal glands are normal in signal. The visualized bowel is within normal limits. No bulky retroperitoneal lymphadenopathy. IMPRESSION: Fatty infiltration liver. Normal MRI appearance of the pancreas. Tiny left renal cyst. Interpreted by Wale oWody MD Final Electronic Signature: This report was electronically signed by Wale Woody MD on 04/10/2016 1: 20 PM. bucky /[email or web address]
--- NOTE | 2016-04-10 13:23 | MRI REPORT ---
HISTORY: Tremors and confusion. Status post fall. COMPARISON: CT head 04/08/2016.. TECHNIQUE: Multiplanar multisequence routine MRI brain with and without IV gadolinium. Study is mildly limited s econdary to patient motion. FINDINGS: The ventricles, sulci, and cisterns are normal in size, shape, and position. The brain parenchyma is normal in signal intensity. No signal abnormality is detected on the diffusion weighted images to whitten ggest acute infarction. There is no evidence of intracranial hemorrhage. No mass, mass effect, or midline shift. The major intracranial flow-voids appear patent. The orbits appear unremarkable. Th e visualized paranasal sinuses and mastoid air cells appear clear. Within limitations of the motion d egraded postcontrast of the exam there is no evidence of abnormal intracranial enhancement. IMPRESSION: Limited study secondary to patient motion demonstrates no definite or specific abnormality. Final Electronic Signature: This report was electronically signed by Wale Woody MD on 04/10/2016 1: 21 PM. bucky /
[2016-04-10] MEDS: CEFTRIAXONE SODIUM 1,000 MG in NORMAL SALINE MINI-BAG+ 100 ML IV SCH (15:27)
[2016-04-10] MEDS: CHLORDIAZEPOXIDE 25 MG CAPSULE PO PRN (17:49)
[2016-04-10] MEDS: POLYVINYL ALCOHOL 1.4% OPHTH 75 DROP/15 ML BTL OPHTHALMIC PRN (22:20)
[2016-04-11] MEDS: CHLORDIAZEPOXIDE 25 MG CAPSULE PO PRN (00:22)
[2016-04-11] MEDS: CHLORDIAZEPOXIDE 25 MG CAPSULE PO SCH ×4 (03:20→18:12)
[2016-04-11] MEDS: PANTOPRAZOLE 40 MG VIAL IV SCH (05:55)
[2016-04-11] MEDS: LEVOTHYROXINE 125 MCG TABLET PO SCH (05:55)
[2016-04-11 06:42] LABS: A/G RATIO 1.1; ALBUMIN 4.1 g/dL (3.5-5.0); ALKALINE PHOSPHATASE 435 U/L (38-126); ALT 109 U/L (9-52); AST 320 U/L (14-36); BILIRUBIN, TOTAL 7.6 mg/dL (0.2-1.3); BLOOD UREA NITROGEN 6 mg/dL (7-17); CALCIUM 9.4 mg/dL (8.4-10.2); CHLORIDE 104 mmol/L (98-107); CREATININE 0.6 mg/dL (0.5-1.0); EST GLOMERULAR FILTRATION RATE > 60 mL/min; GLUCOSE 63 mg/dL (70-100); IRON 164 ug/dL (37-170); LIPASE 1319 U/L (23-300); MAGNESIUM 1.9 mg/dL (1.6-2.3); PHOSPHORUS 1.8 mg/dL (2.5-4.5); POTASSIUM 4.4 mmol/L (3.5-5.1); SODIUM 136 mmol/L (137-145)
[2016-04-11 06:49] LABS: TOTAL IRON BINDING CAPACITY 229 ug/mL (250-400); TRANSFERRIN 154 mg/dL (206-381); TRANSFERRIN SATURATION 71 % (14-50)
[2016-04-11 07:27] LABS: BASOPHIL# 0.1 X 10^3uL (0.0-0.1); BASOPHILS 2.4 % (0.0-2.0); EOSINOPHILS 1.9 % (0.0-6.0); EOSINOPHILS# 0.1 X 10^3uL (0.0-0.4); HEMATOCRIT 49.3 % (36.0-48.0); HEMOGLOBIN 17.2 g/dL (12.0-16.0); LYMPHOCYTES 9.1 % (20.0-40.0); LYMPHOCYTES# 0.4 X 10^3uL (0.8-3.8); MEAN CELL VOLUME 109.5 fL (80.0-100.0); MEAN CORPUS. HGB CONCENTRATION 34.9 g/dL (32.0-36.0); MEAN CORPUSCULAR HEMOGLOBIN 38.2 pg (29.0-35.0); MEAN PLATELET VOLUME 8.7 fL (7.4-10.4); MONOCYTES 13.1 % (2.0-10.0); NEUTROPHILS 73.5 % (54.0-75.0); NEUTROPHILS# 3.7 X 10^3uL (2.6-6.7); RED CELL DISTRIBUTION WIDTH 15.9 % (11.5-14.5); WHITE BLOOD COUNT 4.9 X 10^3uL (3.9-10.7)
[2016-04-11] MEDS: IPRATROPIUM BROMIDE 0.5 MG/2.5 ML NEB INHALATION SCH (07:38)
[2016-04-11 08:03] LABS: MONOCYTES# 0.6 X 10^3uL (0.2-1.0); PLATELET COUNT 60 X 10^3uL (130-440)
[2016-04-11 08:37] LABS: ERYTHROCYTE SEDIMENTATION RATE 12 MM/HR (0-20)
[2016-04-11] MEDS: POTASSIUM CHLORIDE/NS 1,000 ML IV SCH (08:47)
[2016-04-11] MEDS: NICOTINE 7 MG PATCH TRANSDERM SCH (09:11)
[2016-04-11] MEDS: FOLIC ACID 1 MG TABLET PO SCH (09:12)
[2016-04-11] MEDS: propRANOLol HCL 10 MG TABLET PO SCH ×4 (09:12→23:04)
[2016-04-11] MEDS ORDERED: NORMAL SALINE IV ONE (09:51)
[2016-04-11] MEDS ORDERED: POTASSIUM PHOSPHATE IV ONE (09:51)
[2016-04-11] MEDS ORDERED: CHLORDIAZEPOXIDE 25 MG CAPSULE PO PRN (09:55)
[2016-04-11] MEDS ORDERED: CHLORDIAZEPOXIDE 25 MG CAPSULE PO SCH (10:00)
[2016-04-11] MEDS ORDERED: THIAMINE HCL 200 MG/2 ML VIAL IV SCH (10:00)
--- NOTE | 2016-04-11 10:02 | PROGRESS NOTE: IM APSO ---
Assessment and Plan - Date of Encounter Date of Encounter: 04/11/16 (1) Pancreatitis, alcoholic, acute Status: Acute Assessment and plan: Alcoholic pancreatitis. No evidence of ductal stone by ultrasound or MRCP. No current pain or nausea. Started on clear liquid diet yesterday. Advance as tolerated today. Continue supportive care. If she develops pain, will try to avoid opiates considering concurrent chlordiazepoxide. Current Visit: Yes (2) Hepatitis, alcoholic, acute Status: Acute Assessment and plan: Gradually improving. Right upper quadrant ultrasound is positive for fatty infiltration of the liver and gallbladder sludge but no ductal dilatation. MRCP yesterday was negative for other explanation. Additional laboratory testing has been ordered. The majority is pending. However, her iron transferrin saturation is high. Will send for hemochromatosis gene. Continue supportive care. Continue to reinforce the need for alcohol abstinence. Current Visit: Yes (3) Pneumonia, bacterial Status: Acute Assessment and plan: Clinically, doing well. No fever. Now saturating well on room air. No wheezing at this time. Stop ceftriaxone. Continue azithromycin to complete a 5 day course. Stop Atrovent is no longer wheezing. We will leave leave albuterol available for as needed use. Current Visit: Yes (4) COPD exacerbation Status: Acute Current Visit: Yes (5) Leukopenia Status: Acute Assessment and plan: Likely related to bone marrow suppression from alcoholism. Gradually improving off of alcohol. Current Visit: Yes (6) Thrombocytopenia Status: Acute Assessment and plan: Gradually improving off of alcohol. Current Visit: Yes (7) Hypertension, benign Status: Acute Assessment and plan: Elevated blood pressures could represent alcohol withdrawal but persisting in spite of treatment with Librium. Will increase propranolol as this will help with blood pressure and may help with her tremor. Current Visit: Yes (8) Hypothyroidism (acquired) Status: Acute Assessment and plan: It sounds like she has been taking levothyroxine at 125 g daily for the last month. TSH is elevated. Thyroid medication has been restarted at 125 mcg. Consider increasing dose upon discharge if tremor is reasonably controlled. Current Visit: Yes (9) Chronic pain syndrome Status: Acute Assessment and plan: Chronic neck and thoracic spine pain. Avoiding opiates due to the need for benzodiazepines for alcohol withdrawal. Avoiding NSAIDs due to thrombocytopenia Avoiding Tylenol due to recent liver issues. With improvement in liver, we may be able to restart Tylenol at low doses. Current Visit: Yes (10) Tremor Status: Acute Assessment and plan: Presenting with significant tremor/ataxia which is significantly affecting her functionality. Now, working with physical therapy. She is not safe for disposition to home at this time, although she is making some slow improvement. CT scan and MRI scan of the brain without any evidence of structural abnormality. I am concerned about Wernicke's encephalopathy considering her long -standing alcoholism. she was given IV thiamine on the first 2 days of hospitalization, and we will continue this for now. Continue multivitamin. Neurology consultation has been ordered. I remain concerned that this will significantly affect her disposition and long-term prognosis. Current Visit: Yes (11) Alcohol withdrawal Status: Acute Assessment and plan: Still with significant tremor, elevated blood pressure, mild confusion. Will decrease Librium back to 25 milligrams every 6 hours. Continue as needed dosing based upon CIWA scores. Continue supportive care including ongoing IV fluids, IV phos again today. Current Visit: Yes (12) DVT prophylaxis Status: Acute Assessment and plan: Lovenox contraindicated due to thrombocytopenia. SCD stockings. Current Visit: Yes - Time Spent With Patient Total time spent with greater than 50% in coordination of care (as documented) at patient's floor/unit and/or counseling patient: 25 - 35 minutes Estimated anticipated discharge: 2-3 days IM: PN Subjective General: confusion, tremor (coarse tremor and truncal and extremity ataxia), no good appetite, no fever, no chills HEENT: no headache Cardiovascular: no chest pain, no palpitations Respiratory: cough (min), no wheeze Gastrointestinal: bloating, no abdominal pain, no nausea, no vomiting, no diarrhea ( ), no constipation Genitourinary: no dysuria Musculoskeletal: pain (chronic neck and thoracic spine) Integumentary: no rashes Neurological: no headache IM: PN Objective Exam - I&O/Vital Signs I&O: Intake & Output 04/10/16 04/11/16 04/11/16 21:59 05:59 13:59 Intake Total 1100 2118 Output Total 1300 450 Balance -200 1668 Intake: IV 1100 1668 Left Antecubital 1100 Right Forearm 1668 Oral 450 Output: Urine 1300 450 Other: Urine Appearance Clear Clear Urine Color Dark Marsha Dark Marsha Voiding Method Bedside Commode Toilet # Voids 3 # Bowel Movements 1 Vital Signs: Last Vital Signs Temp 37.1 C 04/11/16 06:12 Pulse 90 04/11/16 06:12 Resp 18 04/11/16 06:12 BP 143/103 04/11/16 06:12 Pulse Ox 94 04/11/16 06:12 Oxygen Flow Rate 0 Oxygen Delivery Method Room Air - Constitutional General appearance: Present: other (sedated). Absent: acute distress - Head Head exam: Present: normocephalic. Absent: atraumatic (abrasions to left zygomatic and maxillary region) - Eye Eye exam: Present: conjunctival injection (improved), EOMI (difficult exam but seems to have full range of motion), PERRL, scleral icterus (mild) - Neck Neck exam: Present: full ROM - Respiratory Respiratory exam: Present: decreased breath sounds, rales (left greater than right base). Absent: accessory muscle use, wheezes - Cardiovascular Cardiovascular exam: Present: RRR. Absent: S3, S4 - GI/Abdominal GI/Abdominal exam: Present: distended, normal bowel sounds, organomegaly (mild hepatomegaly), soft. Absent: rebound, rigid, tenderness - Extremities Exam Extremities exam: Present: edema (trace ankle). Absent: calf tenderness - Neurological Exam Neurological exam: Present: other (wide amplitude tremor/ataxia (upper extremity bilaterally, lower extremity bilaterally, truncal)). Absent: oriented X3 (recurrently disoriented to location) - Skin Skin exam: Present: abrasion ({). Absent: rash - Allied Health Notes Allied health notes reviewed: nursing, PT, RT - Lab Labs: Laboratory Last Values WBC 4.9 X 10^3uL (3.9-10.7) 04/11/16 05:00 RBC 4.50 X 10^6uL (4.20-6.10) 04/11/16 05:00 Hgb 17.2 g/dL (12.0-16.0) H 04/11/16 05:00 Hct 49.3 % (36.0-48.0) H 04/11/16 05:00 MCV 109.5 fL (80.0-100.0) H 04/11/16 05:00 MCH 38.2 pg (29.0-35.0) H 04/11/16 05:00 MCHC 34.9 g/dL (32.0-36.0) 04/11/16 05:00 RDW 15.9 % (11.5-14.5) H 04/11/16 05:00 Plt Count 60 X 10^3uL (130-440) L 04/11/16 05:00 MPV 8.7 fL (7.4-10.4) 04/11/16 05:00 Neutrophils % 73.5 % (54.0-75.0) 04/11/16 05:00 Lymphocytes % 9.1 % (20.0-40.0) L 04/11/16 05:00 Eosinophils % 1.9 % (0.0-6.0) 04/11/16 05:00 Basophils % 2.4 % (0.0-2.0) H 04/11/16 05:00 Neutrophils # 3.7 X 10^3uL (2.6-6.7) 04/11/16 05:00 Lymphocytes # 0.4 X 10^3uL (0.8-3.8) L 04/11/16 05:00 Monocytes 13.1 % (2.0-10.0) H 04/11/16 05:00 Monocytes # 0.6 X 10^3uL (0.2-1.0) 04/11/16 05:00 Eosinophils # 0.1 X 10^3uL (0.0-0.4) 04/11/16 05:00 Basophils # 0.1 X 10^3uL (0.0-0.1) 04/11/16 05:00 ESR 12 MM/HR (0-20) 04/11/16 05:00 PT 14.8 sec (13.0-16.6) 04/08/16 12:12 INR 1.1 04/08/16 12:12 Sodium 136 mmol/L (137-145) L 04/11/16 05:00 Potassium 4.4 mmol/L (3.5-5.1) 04/11/16 05:00 Chloride 104 mmol/L (98-107) 04/11/16 05:00 Carbon Dioxide 17 mmol/L (22-30) L 04/11/16 05:00 BUN 6 mg/dL (7-17) L 04/11/16 05:00 Creatinine 0.6 mg/dL (0.5-1.0) 04/11/16 05:00 GFR Calculation > 60 mL/min 04/11/16 05:00 Glucose 63 mg/dL (70-100) L 04/11/16 05:00 Calcium 9.4 mg/dL (8.4-10.2) 04/11/16 05:00 Phosphorus 1.8 mg/dL (2.5-4.5) L 04/11/16 05:00 Magnesium 1.9 mg/dL (1.6-2.3) 04/11/16 05:00 Iron 164 ug/dL (37-170) 04/11/16 05:00 TIBC 229 ug/mL (250-400) L 04/11/16 05:00 Transferrin 154 mg/dL (206-381) L 04/11/16 05:00 Transferrin % Sat 71 % (14-50) H 04/11/16 05:00 Total Bilirubin 7.6 mg/dL (0.2-1.3) H 04/11/16 05:00 Direct Bilirubin 4.9 mg/dL (0.0-0.4) H 04/09/16 05:55 AST 320 U/L (14-36) H 04/11/16 05:00 ALT 109 U/L (9-52) H 04/11/16 05:00 Alkaline Phosphatase 435 U/L (38-126) H 04/11/16 05:00 Ammonia < 9 umol/L (9-30) L 04/11/16 05:00 Creatine Kinase 86 U/L (30-135) 04/09/16 05:55 Total Protein 8.0 g/dL (6.3-8.2) 04/11/16 05:00 Albumin 4.1 g/dL (3.5-5.0) 04/11/16 05:00 Albumin/Globulin Ratio 1.1 04/11/16 05:00 Lipase 1319 U/L (23-300) H 04/11/16 05:00 TSH 10.30 uIU/mL (0.47-4.68) H D 04/08/16 12:12 Ethyl Alcohol 278 mg/dL (<10) H 04/08/16 12:12 Hep Bs Antigen Negative (NEGATIVE) 04/10/16 06:50 (5) Leukopenia Qualifiers: Leukopenia type: unspecified Qualified Code(s): D72.819 - Decreased white blood cell count, unspecified
[2016-04-11] MEDS: AZITHROMYCIN 250 MG in NORMAL SALINE 250 ML IV SCH (10:56)
[2016-04-11] MEDS: MULTIVITAMINS THERAPEUTIC 1 TABLET PO SCH (11:10)
--- NOTE | 2016-04-11 14:08 | US REPORT ---
Routine right upper quadrant ultrasound was performed. No prior studies available for comparison. Sludge is identified within the gallbladder. No stones, wall thickening, duct dilatation or fluid collection is identified. The liver appears heterogeneous, consistent with fatty infiltration. No other abnormality is identified. Limited views of the pancreas and aorta appear unremarkable. IMPRESSION: 1. Sludge within the gallbladder. 2. Findings consistent with fatty infiltration of the liver. MTDD
[2016-04-11] MEDS: SODIUM CHLORIDE IV SCH (18:12)
[2016-04-11] MEDS: POTASSIUM CHLORIDE IV SCH (18:12)
[2016-04-11] MEDS: THIAMINE HCL 100 MG IV SCH (18:12)
[2016-04-12] MEDS: CHLORDIAZEPOXIDE 25 MG CAPSULE PO SCH ×5 (00:16→23:36)
[2016-04-12] MEDS ORDERED: NORMAL SALINE 100 ML IV ONE (06:03)
[2016-04-12] MEDS: PANTOPRAZOLE 40 MG VIAL IV SCH (06:06)
[2016-04-12] MEDS: LEVOTHYROXINE 125 MCG TABLET PO SCH (06:07)
[2016-04-12 06:20] LABS: A/G RATIO 0.9; ALBUMIN 3.6 g/dL (3.5-5.0); ALKALINE PHOSPHATASE 402 U/L (38-126); ALT 106 U/L (9-52); AST 255 U/L (14-36); BILIRUBIN, TOTAL 5.6 mg/dL (0.2-1.3); BLOOD UREA NITROGEN 6 mg/dL (7-17); CHLORIDE 107 mmol/L (98-107); CREATININE 0.6 mg/dL (0.5-1.0); EST GLOMERULAR FILTRATION RATE > 60 mL/min; GLUCOSE 102 mg/dL (70-100); MAGNESIUM 1.7 mg/dL (1.6-2.3); PHOSPHORUS 1.9 mg/dL (2.5-4.5); POTASSIUM 4.4 mmol/L (3.5-5.1); SODIUM 134 mmol/L (137-145); TOTAL PROTEIN 7.5 g/dL (6.3-8.2)
--- NOTE | 2016-04-12 08:31 | PROGRESS NOTE: IM APSO ---
Assessment and Plan - Date of Encounter Date of Encounter: 04/12/16 (1) Alcohol withdrawal Status: Acute Assessment and plan: controlled on librium, vitamins, CIWA 7-12, thrombocytopenia but with only mild splenomegaly by exam. MELD score is 15 (.2% 90 day mortality from liver disease if conservatively managed). Abstinence discussed including AA and [employer]/support. Current Visit: Yes (2) Hepatitis, alcoholic, acute Status: Acute Assessment and plan: LFT's improved Current Visit: Yes (3) Hypertension, benign Status: Acute Current Visit: Yes (4) Hypothyroidism (acquired) Status: Chronic Current Visit: Yes (5) Pancreatitis, alcoholic, acute Status: Acute Current Visit: Yes (6) Thrombocytopenia Status: Acute Assessment and plan: likely EtOH related, possible portal hypertension, follow, no active bleeding though some bruising. Current Visit: Yes (7) Tremor Status: Chronic Assessment and plan: no atrophy on CTH/MRI, concern for Wernickes, some cogwheeling (basal ganglial possibly) will check copper. Likely all alcohol related. Current Visit: Yes - Time Spent With Patient Total time spent with greater than 50% in coordination of care (as documented) at patient's floor/unit and/or counseling patient: Greater than 35 minutes Estimated anticipated discharge: 2-3 days IM: PN Subjective General: confusion (alert this morning with orientation to [facility]/2016 but believes in [facility]. Worried about tremor seems worse. Notes fall and neck injury wiht pain, prior to this last month she drank "few beers? daily but then increased to Vodka. Has struggled for years and was in AA in [place] with some help years ago. Concern for Wernickes with some confabulation.) , tremor (coarse tremor and truncal and extremity ataxia), no good appetite, no fever, no chills HEENT: no headache Cardiovascular: no chest pain, no palpitations Respiratory: no cough (min), no wheeze Gastrointestinal: no abdominal pain, no bloating, no nausea, no vomiting, no diarrhea ( ), no constipation Genitourinary: no dysuria Musculoskeletal: pain (chronic neck and thoracic spine) Integumentary: no rashes Neurological: no headache IM: PN Objective Exam - I&O/Vital Signs I&O: Intake & Output 03/02/2704/12/16 04/12/16 21:59 05:59 13:59 Intake Total 1743 1892 Output Total 1000 1000 Balance 743 892 Weight 75.5 kg Intake: IV 1143 1342 Right Forearm 1143 1342 Oral 600 550 Output: Urine 1000 1000 Other: Urine Appearance Clear Clear Urine Color Dark Marsha Dark Marsha Voiding Method Toilet Toilet # Voids 3 Vital Signs: Last Vital Signs Temp 36.6 C 04/12/16 07:00 Pulse 82 04/12/16 07:00 Resp 20 04/12/16 07:00 BP 136/97 04/12/16 07:00 Pulse Ox 93 04/12/16 07:00 Oxygen Flow Rate 2 Oxygen Delivery Method Room Air - Constitutional General appearance: Present: obese. Absent: acute distress, other - Head Head exam: Present: normocephalic. Absent: atraumatic (abrasions to left zygomatic and maxillary region) - Eye Eye exam: Present: conjunctival injection (improved), EOMI (difficult exam but seems to have full range of motion), nystagmus (left lateral gaze), PERRL, scleral icterus (mild) - ENT ENT exam: Present: mucous membranes moist - Neck Neck exam: Present: full ROM - Respiratory Respiratory exam: Present: decreased breath sounds. Absent: accessory muscle use, rales (left greater than right base), wheezes - Cardiovascular Cardiovascular exam: Present: RRR. Absent: S3, S4 - GI/Abdominal GI/Abdominal exam: Present: distended, normal bowel sounds, organomegaly (mild hepatomegaly), soft. Absent: rebound, rigid, tenderness - Extremities Exam Extremities exam: Present: edema (trace ankle). Absent: calf tenderness - Neurological Exam Neurological exam: Present: oriented X3 (recurrently disoriented to location), other (fine resting tremor, intention component with dysmetria and left pronator drift as well left cogwheeling. No asterexis and negative Hoffmans) - Skin Skin exam: Present: abrasion ({). Absent: rash - Allied Health Notes Allied health notes reviewed: nursing, PT, RT - Lab Labs: Laboratory Last Values WBC 4.9 X 10^3uL (3.9-10.7) 04/11/16 05:00 RBC 4.50 X 10^6uL (4.20-6.10) 04/11/16 05:00 Hgb 17.2 g/dL (12.0-16.0) H 04/11/16 05:00 Hct 49.3 % (36.0-48.0) H 04/11/16 05:00 MCV 109.5 fL (80.0-100.0) H 04/11/16 05:00 MCH 38.2 pg (29.0-35.0) H 04/11/16 05:00 MCHC 34.9 g/dL (32.0-36.0) 04/11/16 05:00 RDW 15.9 % (11.5-14.5) H 04/11/16 05:00 Plt Count 60 X 10^3uL (130-440) L 04/11/16 05:00 MPV 8.7 fL (7.4-10.4) 04/11/16 05:00 Neutrophils % 73.5 % (54.0-75.0) 04/11/16 05:00 Lymphocytes % 9.1 % (20.0-40.0) L 04/11/16 05:00 Eosinophils % 1.9 % (0.0-6.0) 04/11/16 05:00 Basophils % 2.4 % (0.0-2.0) H 04/11/16 05:00 Neutrophils # 3.7 X 10^3uL (2.6-6.7) 04/11/16 05:00 Lymphocytes # 0.4 X 10^3uL (0.8-3.8) L 04/11/16 05:00 Monocytes 13.1 % (2.0-10.0) H 04/11/16 05:00 Monocytes # 0.6 X 10^3uL (0.2-1.0) 04/11/16 05:00 Eosinophils # 0.1 X 10^3uL (0.0-0.4) 04/11/16 05:00 Basophils # 0.1 X 10^3uL (0.0-0.1) 04/11/16 05:00 ESR 12 MM/HR (0-20) 04/11/16 05:00 PT 14.8 sec (13.0-16.6) 04/08/16 12:12 INR 1.1 04/08/16 12:12 Sodium 134 mmol/L (137-145) L 04/12/16 05:00 Potassium 4.4 mmol/L (3.5-5.1) 04/12/16 05:00 Chloride 107 mmol/L (98-107) 04/12/16 05:00 Carbon Dioxide 19 mmol/L (22-30) L 04/12/16 05:00 BUN 6 mg/dL (7-17) L 04/12/16 05:00 Creatinine 0.6 mg/dL (0.5-1.0) 04/12/16 05:00 GFR Calculation > 60 mL/min 04/12/16 05:00 Glucose 102 mg/dL (70-100) H 04/12/16 05:00 Calcium 9.0 mg/dL (8.4-10.2) 04/12/16 05:00 Phosphorus 1.9 mg/dL (2.5-4.5) L 04/12/16 05:00 Magnesium 1.7 mg/dL (1.6-2.3) 04/12/16 05:00 Iron 164 ug/dL (37-170) 04/11/16 05:00 TIBC 229 ug/mL (250-400) L 04/11/16 05:00 Transferrin 154 mg/dL (206-381) L 04/11/16 05:00 Transferrin % Sat 71 % (14-50) H 04/11/16 05:00 Total Bilirubin 5.6 mg/dL (0.2-1.3) H 04/12/16 05:00 Direct Bilirubin 4.9 mg/dL (0.0-0.4) H 04/09/16 05:55 AST 255 U/L (14-36) H 04/12/16 05:00 ALT 106 U/L (9-52) H 04/12/16 05:00 Alkaline Phosphatase 402 U/L (38-126) H 04/12/16 05:00 Ammonia < 9 umol/L (9-30) L 04/11/16 05:00 Creatine Kinase 86 U/L (30-135) 04/09/16 05:55 Total Protein 7.5 g/dL (6.3-8.2) 04/12/16 05:00 Albumin 3.6 g/dL (3.5-5.0) 04/12/16 05:00 Albumin/Globulin Ratio 0.9 04/12/16 05:00 Lipase 1319 U/L (23-300) H 04/11/16 05:00 TSH 10.30 uIU/mL (0.47-4.68) H D 04/08/16 12:12 Ethyl Alcohol 278 mg/dL (<10) H 04/08/16 12:12 Hep Bs Antigen Negative (NEGATIVE) 04/10/16 06:50 (1) Alcohol withdrawal Qualifiers: Complication of substance-induced condition: with delirium Qualified Code(s) : F10.231 - Alcohol dependence with withdrawal delirium
[2016-04-12] MEDS ORDERED: MAGNESIUM SULFATE IV SCH (09:00)
[2016-04-12] MEDS ORDERED: DEXTROSE 5% IV SCH (09:00)
[2016-04-12] MEDS: PHOSPHORUS 250 MG TABLET PO SCH ×2 (09:42→21:05)
[2016-04-12] MEDS: MULTIVITAMINS THERAPEUTIC 1 TABLET PO SCH (09:42)
[2016-04-12] MEDS: FOLIC ACID 1 MG TABLET PO SCH (09:42)
[2016-04-12] MEDS: propRANOLol HCL 10 MG TABLET PO SCH ×3 (09:43→21:07)
[2016-04-12] MEDS: ERYTHROMYCIN BASE OPHTH 1 GM OINT OPHTHALMIC SCH ×2 (09:43→21:04)
[2016-04-12] MEDS: NICOTINE 7 MG PATCH TRANSDERM SCH (09:43)
[2016-04-12] MEDS ORDERED: MAGNESIUM SULFATE 100 ML IV ONE (09:50)
[2016-04-12] MEDS: THIAMINE HCL 100 MG IV SCH (10:39)
[2016-04-12] MEDS: SODIUM CHLORIDE IV SCH (10:39)
[2016-04-12] MEDS: POTASSIUM CHLORIDE IV SCH (10:39)
[2016-04-12] MEDS: AZITHROMYCIN 250 MG in NORMAL SALINE 250 ML IV SCH (12:37)
[2016-04-12] MEDS: NICOTINE 14 MG PATCH TRANSDERM SCH (16:30)
[2016-04-12] MEDS: POTASSIUM CHLORIDE/NS 1,000 ML IV SCH (21:02)
[2016-04-13] MEDS: POTASSIUM CHLORIDE/NS 1,000 ML IV SCH (05:04)
[2016-04-13] MEDS: CHLORDIAZEPOXIDE 25 MG CAPSULE PO SCH ×4 (06:32→21:37)
[2016-04-13] MEDS: LEVOTHYROXINE 125 MCG TABLET PO SCH (06:33)
[2016-04-13] MEDS: PANTOPRAZOLE 40 MG VIAL IV SCH (06:33)
--- NOTE | 2016-04-13 08:55 | PROGRESS NOTE: IM APSO ---
Assessment and Plan - Date of Encounter Date of Encounter: 04/13/16 (1) Pancreatitis, alcoholic, acute Status: Acute Assessment and plan: Alcoholic pancreatitis. No evidence of ductal stone by ultrasound or MRCP. No current pain or nausea. Advancing diet as tolerated. Continue supportive care. Current Visit: Yes (2) Hepatitis, alcoholic, acute Status: Acute Assessment and plan: Gradually improving. Right upper quadrant ultrasound is positive for fatty infiltration of the liver and gallbladder sludge but no ductal dilatation. MRCP was negative for other explanation. Additional laboratory testing has been ordered. The majority is pending. However, her iron transferrin saturation is high. Hemochromatosis gene pending. Continue supportive care. Continue to reinforce the need for alcohol abstinence. Current Visit: Yes (3) Pneumonia, bacterial Status: Acute Assessment and plan: Clinically, doing well. No fever. Now saturating well on room air. No wheezing at this time. Complete azithro today. We will leave levalbuterol available for as needed use. Current Visit: Yes (4) COPD exacerbation Status: Acute Assessment and plan: See above. Current Visit: Yes (5) Leukopenia Status: Acute Assessment and plan: Likely related to bone marrow suppression from alcoholism. Gradually improving off of alcohol. Current Visit: Yes (6) Thrombocytopenia Status: Acute Assessment and plan: Gradually improving off of alcohol. Current Visit: Yes (7) Hypertension, benign Status: Acute Assessment and plan: Elevated blood pressures could represent alcohol withdrawal but persisting in spite of treatment with Librium. Will continue to increase propranolol as this will help with blood pressure and may help with her tremor. Current Visit: Yes (8) Hypothyroidism (acquired) Status: Chronic Assessment and plan: It sounds like she has been taking levothyroxine at 125 g daily for the last month. TSH is elevated. Thyroid medication has been restarted at 125 mcg. Consider increasing dose upon discharge if tremor is reasonably controlled. Current Visit: Yes (9) Chronic pain syndrome Status: Acute Assessment and plan: Chronic neck and thoracic spine pain. Avoiding opiates due to the need for benzodiazepines for alcohol withdrawal. With improvement in liver and platelet count, will start low-dose ibuprofen with GI prophylaxis and low-dose acetaminophen. Current Visit: Yes (10) Tremor Status: Chronic Assessment and plan: Presenting with significant tremor/ataxia and bradykinesia and weakness which is significantly affecting her functionality. Now, working with physical therapy. She is not safe for disposition to home at this time, although she is making some slow improvement. CT scan and MRI scan of the brain without any evidence of structural abnormality. Treatment of alcohol withdrawal has not resulted in resolution of her tremor/movement disorder. I am concerned about Wernicke's encephalopathy considering her long-standing alcoholism. She was given IV thiamine early in hospitalization, and we will continue orally for now. Continue multivitamin. Although her presentation is not typical for Parkinson's disease as her tremor is exacerbated intension/movement, with her bradykinesia, we discussed options, and we will try low-dose Sinemet empirically. Neurology consultation has been ordered for Saturday. I remain concerned that this will significantly affect her disposition and long-term prognosis. Current Visit: Yes (11) Alcohol withdrawal Status: Acute Assessment and plan: Improving but still with waxing and waning tremor, elevated blood pressure, mild confusion. Will decrease Librium back to 25 milligrams TID. Continue as needed dosing based upon CIWA scores but decrease to every 4 hours. Continue supportive care. Current Visit: Yes (12) DVT prophylaxis Status: Acute Assessment and plan: Lovenox contraindicated due to thrombocytopenia. SCD stockings. Current Visit: Yes - Time Spent With Patient Total time spent with greater than 50% in coordination of care (as documented) at patient's floor/unit and/or counseling patient: 25 - 35 minutes Estimated anticipated discharge: Saturday or Saturday after neuro IM: PN Subjective General: confusion (better today), tremor (coarse tremor with truncal and extremity ataxia and bradykinesia), no good appetite, no fever, no chills HEENT: no headache Cardiovascular: no chest pain, no palpitations Respiratory: cough (mild), no wheeze, no SOB Gastrointestinal: constipation (mild, chronic, baseline), no abdominal pain, no bloating, no nausea, no vomiting, no diarrhea Genitourinary: no dysuria Musculoskeletal: pain (chronic neck and thoracic spine) Integumentary: no rashes Neurological: no headache IM: PN Objective Exam - I&O/Vital Signs I&O: Intake & Output 04/12/16 04/13/16 04/13/16 21:59 05:59 13:59 Intake Total 1770 1700 Output Total 1550 Balance 1770 150 Intake: IV 1620 1400 Right Forearm 1620 1400 Oral 150 300 Output: Urine 1550 Other: Urine Color Yellow Stool Characteristics Soft Formed Brown Voiding Method Bedside Commode Bedside Commode # Voids 3 Vital Signs: Last Vital Signs Temp 36.1 C L 04/13/16 06:20 Pulse 74 04/13/16 06:20 Resp 16 04/13/16 06:20 BP 143/97 04/13/16 06:20 Pulse Ox 93 04/13/16 06:20 Oxygen Flow Rate 2 Oxygen Delivery Method Room Air - Constitutional General appearance: Present: obese. Absent: acute distress - Head Head exam: Present: normocephalic. Absent: atraumatic (abrasions to left zygomatic and maxillary region) - Eye Eye exam: Present: conjunctival injection (improved), EOMI (difficult exam but seems to have full range of motion), PERRL, scleral icterus (mild) - ENT ENT exam: Present: mucous membranes moist - Neck Neck exam: Present: full ROM - Respiratory Respiratory exam: Present: decreased breath sounds, rales (left greater than right base). Absent: accessory muscle use, rhonchi, wheezes - Cardiovascular Cardiovascular exam: Present: RRR. Absent: S3, S4 - GI/Abdominal GI/Abdominal exam: Present: distended, normal bowel sounds, organomegaly (mild hepatomegaly, splenomegaly), soft. Absent: rebound, rigid, tenderness - Extremities Exam Extremities exam: Present: edema (trace ankle). Absent: calf tenderness - Neurological Exam Neurological exam: Present: other (Ongoing tremor involving jaw, bilateral upper extremities, to a lesser extent lower extremities.Muscle tone is normal. Cogwheeling versus superimposed tremor. No disconjugate gaze. No nystagmus. Severe bradykinesia.). Absent: oriented X3 (recurrently disoriented to location ) - Skin Skin exam: Present: abrasion ({). Absent: rash - Allied Health Notes Allied health notes reviewed: nursing, PT - Lab Labs: Laboratory Last Values WBC 4.9 X 10^3uL (3.9-10.7) 04/11/16 05:00 RBC 4.50 X 10^6uL (4.20-6.10) 04/11/16 05:00 Hgb 17.2 g/dL (12.0-16.0) H 04/11/16 05:00 Hct 49.3 % (36.0-48.0) H 04/11/16 05:00 MCV 109.5 fL (80.0-100.0) H 04/11/16 05:00 MCH 38.2 pg (29.0-35.0) H 04/11/16 05:00 MCHC 34.9 g/dL (32.0-36.0) 04/11/16 05:00 RDW 15.9 % (11.5-14.5) H 04/11/16 05:00 Plt Count 60 X 10^3uL (130-440) L 04/11/16 05:00 MPV 8.7 fL (7.4-10.4) 04/11/16 05:00 Neutrophils % 73.5 % (54.0-75.0) 04/11/16 05:00 Lymphocytes % 9.1 % (20.0-40.0) L 04/11/16 05:00 Eosinophils % 1.9 % (0.0-6.0) 04/11/16 05:00 Basophils % 2.4 % (0.0-2.0) H 04/11/16 05:00 Neutrophils # 3.7 X 10^3uL (2.6-6.7) 04/11/16 05:00 Lymphocytes # 0.4 X 10^3uL (0.8-3.8) L 04/11/16 05:00 Monocytes 13.1 % (2.0-10.0) H 04/11/16 05:00 Monocytes # 0.6 X 10^3uL (0.2-1.0) 04/11/16 05:00 Eosinophils # 0.1 X 10^3uL (0.0-0.4) 04/11/16 05:00 Basophils # 0.1 X 10^3uL (0.0-0.1) 04/11/16 05:00 ESR 12 MM/HR (0-20) 04/11/16 05:00 PT 14.8 sec (13.0-16.6) 04/08/16 12:12 INR 1.1 04/08/16 12:12 Sodium 134 mmol/L (137-145) L 04/12/16 05:00 Potassium 4.4 mmol/L (3.5-5.1) 04/12/16 05:00 Chloride 107 mmol/L (98-107) 04/12/16 05:00 Carbon Dioxide 19 mmol/L (22-30) L 04/12/16 05:00 BUN 6 mg/dL (7-17) L 04/12/16 05:00 Creatinine 0.6 mg/dL (0.5-1.0) 04/12/16 05:00 GFR Calculation > 60 mL/min 04/12/16 05:00 Glucose 102 mg/dL (70-100) H 04/12/16 05:00 Calcium 9.0 mg/dL (8.4-10.2) 04/12/16 05:00 Phosphorus 1.9 mg/dL (2.5-4.5) L 04/12/16 05:00 Magnesium 1.7 mg/dL (1.6-2.3) 04/12/16 05:00 Iron 164 ug/dL (37-170) 04/11/16 05:00 TIBC 229 ug/mL (250-400) L 04/11/16 05:00 Transferrin 154 mg/dL (206-381) L 04/11/16 05:00 Transferrin % Sat 71 % (14-50) H 04/11/16 05:00 Total Bilirubin 5.6 mg/dL (0.2-1.3) H 04/12/16 05:00 Direct Bilirubin 4.9 mg/dL (0.0-0.4) H 04/09/16 05:55 AST 255 U/L (14-36) H 04/12/16 05:00 ALT 106 U/L (9-52) H 04/12/16 05:00 Alkaline Phosphatase 402 U/L (38-126) H 04/12/16 05:00 Ammonia < 9 umol/L (9-30) L 04/11/16 05:00 Creatine Kinase 86 U/L (30-135) 04/09/16 05:55 Total Protein 7.5 g/dL (6.3-8.2) 04/12/16 05:00 Albumin 3.6 g/dL (3.5-5.0) 04/12/16 05:00 Albumin/Globulin Ratio 0.9 04/12/16 05:00 Lipase 1319 U/L (23-300) H 04/11/16 05:00 TSH 10.30 uIU/mL (0.47-4.68) H D 04/08/16 12:12 Ethyl Alcohol 278 mg/dL (<10) H 04/08/16 12:12 Anti-Nuclear Antibody See comments (()) 04/10/16 06:50 Hep Bs Antigen Negative (NEGATIVE) 04/10/16 06:50 (5) Leukopenia Qualifiers: Leukopenia type: unspecified Qualified Code(s): D72.819 - Decreased white blood cell count, unspecified (11) Alcohol withdrawal Qualifiers: Complication of substance-induced condition: with delirium Qualified Code(s) : F10.231 - Alcohol dependence with withdrawal delirium
[2016-04-13] MEDS: ERYTHROMYCIN BASE OPHTH 1 GM OINT OPHTHALMIC SCH ×2 (10:04→21:22)
[2016-04-13] MEDS: IBUPROFEN 200 MG TABLET PO SCH ×3 (10:04→21:21)
[2016-04-13] MEDS: NICOTINE 14 MG PATCH TRANSDERM SCH (10:04)
[2016-04-13] MEDS: MULTIVITAMINS THERAPEUTIC 1 TABLET PO SCH (10:05)
[2016-04-13] MEDS: FOLIC ACID 1 MG TABLET PO SCH (10:05)
[2016-04-13] MEDS: PHOSPHORUS 250 MG TABLET PO SCH ×3 (10:05→21:21)
[2016-04-13] MEDS: CARBIDOPA/LEVODOPA 25/100 MG 1 TAB TABLET PO SCH ×3 (10:05→21:20)
[2016-04-13] MEDS: ACETAMINOPHEN 325 MG TABLET PO SCH ×4 (10:06→20:13)
[2016-04-13] MEDS: SERTRALINE HCL 50 MG TABLET PO SCH (10:06)
[2016-04-13] MEDS: THIAMINE HCL 50 MG TABLET PO SCH (10:06)
[2016-04-13] MEDS: propRANOLol HCL 10 MG TABLET PO SCH ×3 (10:13→21:21)
[2016-04-13] MEDS: AZITHROMYCIN 250 MG in NORMAL SALINE 250 ML IV SCH (11:14)
[2016-04-13] MEDS ORDERED: POTASSIUM CHLORIDE/NS 1,000 ML IV ONE (15:33)
[2016-04-14] MEDS: PANTOPRAZOLE 40 MG TABLET PO SCH (06:35)
[2016-04-14] MEDS: LEVOTHYROXINE 125 MCG TABLET PO SCH (06:35)
[2016-04-14 07:20] LABS: A/G RATIO 0.9; ALBUMIN 3.2 g/dL (3.5-5.0); ALKALINE PHOSPHATASE 338 U/L (38-126); ALT 51 U/L (9-52); AST 206 U/L (14-36); BILIRUBIN, TOTAL 4.3 mg/dL (0.2-1.3); BLOOD UREA NITROGEN 4 mg/dL (7-17); CALCIUM 9.3 mg/dL (8.4-10.2); CHLORIDE 109 mmol/L (98-107); CREATININE 0.6 mg/dL (0.5-1.0); EST GLOMERULAR FILTRATION RATE > 60 mL/min; GLUCOSE 82 mg/dL (70-100); MAGNESIUM 1.7 mg/dL (1.6-2.3); PHOSPHORUS 4.5 mg/dL (2.5-4.5); POTASSIUM 3.6 mmol/L (3.5-5.1); SODIUM 137 mmol/L (137-145); TOTAL PROTEIN 6.7 g/dL (6.3-8.2)
[2016-04-14 07:57] LABS: BAND% (Manual) 11 % (0.0-1.0); HEMATOCRIT 45.7 % (36.0-48.0); HEMOGLOBIN 15.3 g/dL (12.0-16.0); LYMPHOCYTE % (Manual) 20 % (20.0-40.0); MEAN CELL VOLUME 111.8 fL (80.0-100.0); MEAN CORPUS. HGB CONCENTRATION 33.5 g/dL (32.0-36.0); MEAN CORPUSCULAR HEMOGLOBIN 37.5 pg (29.0-35.0); MEAN PLATELET VOLUME 9.5 fL (7.4-10.4); NEUTROPHIL % (Manual) 37 % (54.0-75.0); PLATELET COUNT 117 X 10^3uL (130-440); RED BLOOD COUNT 4.09 X 10^6uL (4.20-6.10); RED CELL DISTRIBUTION WIDTH 16.7 % (11.5-14.5); WHITE BLOOD COUNT 3.1 X 10^3uL (3.9-10.7)
[2016-04-14 07:58] LABS: EOSINOPHIL % (Manual) 4 % (0.0-6.0); MONOCYTE % (Manual) 28 % (2.0-10.0)
[2016-04-14 07:59] LABS: PLATELET ESTIMATE DECREASED
[2016-04-14] MEDS: CARBIDOPA/LEVODOPA 25/100 MG 1 TAB TABLET PO SCH ×3 (08:03→21:43)
[2016-04-14] MEDS: SERTRALINE HCL 50 MG TABLET PO SCH (08:04)
[2016-04-14] MEDS: PHOSPHORUS 250 MG TABLET PO SCH ×3 (08:04→21:43)
[2016-04-14] MEDS: IBUPROFEN 200 MG TABLET PO SCH ×3 (08:05→21:43)
[2016-04-14] MEDS: THIAMINE HCL 50 MG TABLET PO SCH (08:05)
[2016-04-14] MEDS: FOLIC ACID 1 MG TABLET PO SCH (08:06)
[2016-04-14] MEDS: propRANOLol HCL 10 MG TABLET PO SCH ×3 (08:06→21:43)
[2016-04-14] MEDS: CHLORDIAZEPOXIDE 25 MG CAPSULE PO SCH ×3 (08:07→21:00)
[2016-04-14] MEDS: MULTIVITAMINS THERAPEUTIC 1 TABLET PO SCH (08:07)
[2016-04-14] MEDS: ERYTHROMYCIN BASE OPHTH 1 GM OINT OPHTHALMIC SCH ×2 (08:07→21:42)
[2016-04-14] MEDS: NICOTINE 14 MG PATCH TRANSDERM SCH (08:07)
--- NOTE | 2016-04-14 09:23 | PROGRESS NOTE: IM APSO ---
Assessment and Plan - Date of Encounter Date of Encounter: 04/14/16 (1) Alcohol withdrawal Status: Acute Assessment and plan: Gradually nearing the end of the process. However, there is a very long history of alcoholism in this patient and she will need further attempts at helping her with abstinence. She may be a candidate for Naltrexone. Current Visit: Yes (2) Tremor Status: Chronic Assessment and plan: I had difficulty ascertaining the chronicity of this. If the patient has a very long history of alcoholism, it is more likely to be chronic. However, she is very weak and tremulous today.. Reflexes seem normal. She continues on Thiamine, and is to see Neurology on Saturday for an opinion. PT and OT efforts are ongoing. Current Visit: Yes (3) Hepatitis, alcoholic, acute Status: Acute Assessment and plan: Gradual improvement. Her numbers are steadily decreasing. Current Visit: Yes (4) Leukopenia Status: Acute Assessment and plan: Bone marrow indices are severely abnormal, which I assume relates to her alcohol toxicity. Continue efforts with vitamin supplementation, but the patient is refusing to eat and drink, which is problematic. Current Visit: Yes (5) Hypertension, benign Status: Acute Assessment and plan: Blood pressure is quite elevated currently, but the patient is upset, so will continue to monitor. Receiving Propranolol. Current Visit: Yes - Time Spent With Patient Total time spent with greater than 50% in coordination of care (as documented) at patient's floor/unit and/or counseling patient: 25 - 35 minutes Estimated anticipated discharge: Saturday or Saturday after neuro IM: PN Subjective Interval history: Patient is not making a lot of progress. She is refusing to eat, and refuses to drink any supplements. I have the feeling that she is very angry underneath her fairly placid exterior. She is not able to self support to the bathroom, and she continues to have severe tremors. I asked her about family history, and her mother fairly recently with metastatic liver cancer at age 82, her father is alive and well, her son is hospitalized with severe pulmonary embolus and "lost a lung," and has Factor V Leiden deficiency. She is considered to be a carrier, but has never had any problems with blood clots, including during . Her brother recently committed suicide, and her sister had sarcoidosis with good recovery. Her grandmother had what she calls Alzheimer's dementia. Patient is clearly depressed, and I am afraid she is suicidal. She has gestured to the nursing staff that she would put a gun under her chin and pull the trigger. She is being closely monitored, and has been started on Sertraline. General: confusion (better today), tremor (coarse tremor with truncal and extremity ataxia and bradykinesia), no good appetite, no fever, no chills HEENT: no headache Cardiovascular: no chest pain, no palpitations Respiratory: cough (mild), no wheeze, no SOB Gastrointestinal: constipation (mild, chronic, baseline), no abdominal pain, no bloating, no nausea, no vomiting, no diarrhea Genitourinary: no dysuria Musculoskeletal: pain (chronic neck and thoracic spine) Integumentary: no rashes Neurological: no headache IM: PN Objective Exam - I&O/Vital Signs I&O: Intake & Output 04/13/16 04/14/16 04/14/16 21:59 05:59 13:59 Intake Total 1400 300 Output Total 450 900 Balance 950 -600 Weight 70 kg Intake: IV 1200 Right Forearm 1200 Oral 200 300 Output: Urine 450 900 Stool 0 Other: Urine Appearance Clear Clear Urine Color Yellow Yellow Voiding Method Toilet Bedside Commode # Voids 2 3 Vital Signs: Last Vital Signs Temp 36.6 C 04/14/16 06:53 Pulse 66 04/14/16 06:53 Resp 18 04/14/16 06:53 BP 149/101 04/14/16 06:53 Pulse Ox 94 04/14/16 06:53 Oxygen Flow Rate 2 Oxygen Delivery Method Room Air - Constitutional General appearance: Present: obese. Absent: acute distress - Head Head exam: Present: normocephalic. Absent: atraumatic (abrasions to left zygomatic and maxillary region) - Eye Eye exam: Present: conjunctival injection (improved), EOMI (eyes are moving well today. ), PERRL, scleral icterus (mild) - ENT ENT exam: Present: mucous membranes moist - Neck Neck exam: Present: full ROM - Respiratory Respiratory exam: Present: decreased breath sounds, rales (left greater than right base). Absent: accessory muscle use, rhonchi, wheezes - Cardiovascular Cardiovascular exam: Present: RRR. Absent: S3, S4 - GI/Abdominal GI/Abdominal exam: Present: distended, normal bowel sounds, organomegaly (mild hepatomegaly, splenomegaly), soft. Absent: rebound, rigid, tenderness - Extremities Exam Extremities exam: Absent: calf tenderness, edema - Neurological Exam Neurological exam: Present: other (Ongoing tremor involving jaw, bilateral upper extremities, to a lesser extent lower extremities.Muscle tone is normal. Cogwheeling versus superimposed tremor. No disconjugate gaze. No nystagmus. Severe bradykinesia.). Absent: oriented X3 (recurrently disoriented to location ) - Psychiatric Psychiatric exam: Present: flat affect - Skin Skin exam: Present: abrasion ({). Absent: rash - Allied Health Notes Allied health notes reviewed: nursing, PT - Lab Labs: Laboratory Last Values WBC 3.1 X 10^3uL (3.9-10.7) L 04/14/16 06:05 RBC 4.09 X 10^6uL (4.20-6.10) L 04/14/16 06:05 Hgb 15.3 g/dL (12.0-16.0) 04/14/16 06:05 Hct 45.7 % (36.0-48.0) 04/14/16 06:05 MCV 111.8 fL (80.0-100.0) H 04/14/16 06:05 MCH 37.5 pg (29.0-35.0) H 04/14/16 06:05 MCHC 33.5 g/dL (32.0-36.0) 04/14/16 06:05 RDW 16.7 % (11.5-14.5) H 04/14/16 06:05 Plt Count 117 X 10^3uL (130-440) L 04/14/16 06:05 MPV 9.5 fL (7.4-10.4) 04/14/16 06:05 Total Counted 100 04/14/16 06:05 Neutrophils % 73.5 % (54.0-75.0) 04/11/16 05:00 Neutrophils % (Manual) 37 % (54.0-75.0) L 04/14/16 06:05 Band Neuts % (Manual) 11 % (0.0-1.0) H 04/14/16 06:05 Lymphocytes % 9.1 % (20.0-40.0) L 04/11/16 05:00 Lymphocytes % (Manual) 20 % (20.0-40.0) 04/14/16 06:05 Monocytes % (Manual) 28 % (2.0-10.0) H 04/14/16 06:05 Eosinophils % 1.9 % (0.0-6.0) 04/11/16 05:00 Eosinophils % (Manual) 4 % (0.0-6.0) 04/14/16 06:05 Basophils % 2.4 % (0.0-2.0) H 04/11/16 05:00 Neutrophils # 3.7 X 10^3uL (2.6-6.7) 04/11/16 05:00 Lymphocytes # 0.4 X 10^3uL (0.8-3.8) L 04/11/16 05:00 Monocytes 13.1 % (2.0-10.0) H 04/11/16 05:00 Monocytes # 0.6 X 10^3uL (0.2-1.0) 04/11/16 05:00 Eosinophils # 0.1 X 10^3uL (0.0-0.4) 04/11/16 05:00 Basophils # 0.1 X 10^3uL (0.0-0.1) 04/11/16 05:00 Platelet Estimate Decreased 04/14/16 06:05 Macrocytosis 40-69% of cells 04/14/16 06:05 ESR 12 MM/HR (0-20) 04/11/16 05:00 PT 14.8 sec (13.0-16.6) 04/08/16 12:12 INR 1.1 04/08/16 12:12 Sodium 137 mmol/L (137-145) 04/14/16 06:05 Potassium 3.6 mmol/L (3.5-5.1) 04/14/16 06:05 Chloride 109 mmol/L (98-107) H 04/14/16 06:05 Carbon Dioxide 20 mmol/L (22-30) L 04/14/16 06:05 BUN 4 mg/dL (7-17) L 04/14/16 06:05 Creatinine 0.6 mg/dL (0.5-1.0) 04/14/16 06:05 GFR Calculation > 60 mL/min 04/14/16 06:05 Glucose 82 mg/dL (70-100) 04/14/16 06:05 Calcium 9.3 mg/dL (8.4-10.2) 04/14/16 06:05 Phosphorus 4.5 mg/dL (2.5-4.5) 04/14/16 06:05 Magnesium 1.7 mg/dL (1.6-2.3) 04/14/16 06:05 Iron 164 ug/dL (37-170) 04/11/16 05:00 TIBC 229 ug/mL (250-400) L 04/11/16 05:00 Transferrin 154 mg/dL (206-381) L 04/11/16 05:00 Transferrin % Sat 71 % (14-50) H 04/11/16 05:00 Total Bilirubin 4.3 mg/dL (0.2-1.3) H 04/14/16 06:05 Direct Bilirubin 4.9 mg/dL (0.0-0.4) H 04/09/16 05:55 AST 206 U/L (14-36) H 04/14/16 06:05 ALT 51 U/L (9-52) 04/14/16 06:05 Alkaline Phosphatase 338 U/L (38-126) H 04/14/16 06:05 Ammonia < 9 umol/L (9-30) L 04/11/16 05:00 Creatine Kinase 86 U/L (30-135) 04/09/16 05:55 Total Protein 6.7 g/dL (6.3-8.2) 04/14/16 06:05 Albumin 3.2 g/dL (3.5-5.0) L 04/14/16 06:05 Albumin/Globulin Ratio 0.9 04/14/16 06:05 Lipase 1319 U/L (23-300) H 04/11/16 05:00 TSH 10.30 uIU/mL (0.47-4.68) H D 04/08/16 12:12 Ethyl Alcohol 278 mg/dL (<10) H 04/08/16 12:12 Copper See comments (()) 04/12/16 11:40 Anti-Nuclear Antibody See comments (()) 04/10/16 06:50 Hep Bs Antigen Negative (NEGATIVE) 04/10/16 06:50 (1) Alcohol withdrawal Qualifiers: Complication of substance-induced condition: with delirium Qualified Code(s) : F10.231 - Alcohol dependence with withdrawal delirium (4) Leukopenia Qualifiers: Leukopenia type: unspecified Qualified Code(s): D72.819 - Decreased white blood cell count, unspecified
[2016-04-15] MEDS: LEVOTHYROXINE 125 MCG TABLET PO SCH (06:16)
[2016-04-15] MEDS: PANTOPRAZOLE 40 MG TABLET PO SCH (06:16)
[2016-04-15] MEDS: propRANOLol HCL 10 MG TABLET PO SCH ×3 (08:31→21:00)
[2016-04-15] MEDS: THIAMINE HCL 50 MG TABLET PO SCH (08:32)
[2016-04-15] MEDS: CARBIDOPA/LEVODOPA 25/100 MG 1 TAB TABLET PO SCH ×3 (08:32→21:00)
[2016-04-15] MEDS: NICOTINE 14 MG PATCH TRANSDERM SCH (08:33)
[2016-04-15] MEDS: PHOSPHORUS 250 MG TABLET PO SCH ×2 (08:33→18:09)
[2016-04-15] MEDS: IBUPROFEN 200 MG TABLET PO SCH ×3 (08:33→21:00)
[2016-04-15] MEDS: MULTIVITAMINS THERAPEUTIC 1 TABLET PO SCH (08:33)
[2016-04-15] MEDS: ERYTHROMYCIN BASE OPHTH 1 GM OINT OPHTHALMIC SCH ×2 (08:33→21:00)
[2016-04-15] MEDS: CHLORDIAZEPOXIDE 25 MG CAPSULE PO SCH ×3 (08:33→21:00)
[2016-04-15] MEDS: FOLIC ACID 1 MG TABLET PO SCH (08:33)
[2016-04-15] MEDS: SERTRALINE HCL 50 MG TABLET PO SCH (08:34)
--- NOTE | 2016-04-15 10:48 | PROGRESS NOTE: IM APSO ---
Assessment and Plan - Date of Encounter Date of Encounter: 04/15/16 (1) Alcohol withdrawal Status: Acute Assessment and plan: Has continued on her Librium taper. She is very drowsy, and not really improving much at this time. Her jaundice is improving. Current Visit: Yes (2) Tremor Status: Chronic Assessment and plan: When sleeping, there is no tremor. Tremors remain severe when awake, along with weakness, particularly of the lower extremities. Neurology assessment planned for tomorrow. Current Visit: Yes (3) Hepatitis, alcoholic, acute Status: Acute Assessment and plan: ALT and AST have been steadily decreasing. Repeat labs ordered for tomorrow. Jaundice is improving, also. Current Visit: Yes (4) Leukopenia Status: Acute Assessment and plan: Repeat CBC ordered for tomorrow. 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 Patient has an impressive macrocytosis. Could consider underlying bone marrow disorder, also. Current Visit: Yes (5) Hypertension, benign Status: Acute Assessment and plan: Still with some elevated diastolics, but improved over all with Propranolol. Current Visit: Yes - Time Spent With Patient Total time spent with greater than 50% in coordination of care (as documented) at patient's floor/unit and/or counseling patient: 16-24 minutes Estimated anticipated discharge: Patient seems very weak. IM: PN Subjective Interval history: There has been little change. Nursing staff report that the patient seems weaker this morning. She is sleeping very soundly, and does not arouse to exam. This has been typical, and nursing staff reports the need for sternal rub to arouse her at times. Continues to struggle with oral intake. I did not order labs for today, as her results have been trending in the right direction, and she has had extensive blood draws. Labs are ordered for tomorrow morning, as is Neurology consult. General: confusion (better today), tremor (coarse tremor with truncal and extremity ataxia and bradykinesia), no good appetite, no fever, no chills HEENT: no headache Cardiovascular: no chest pain, no palpitations Respiratory: no cough, no wheeze, no SOB Gastrointestinal: constipation (mild, chronic, baseline), no abdominal pain, no bloating, no nausea, no vomiting, no diarrhea Genitourinary: no dysuria Musculoskeletal: pain (chronic neck and thoracic spine) Integumentary: no rashes Neurological: no headache IM: PN Objective Exam - I&O/Vital Signs I&O: Intake & Output 04/14/16 04/15/16 04/15/16 21:59 05:59 13:59 Intake Total 800 100 Output Total 850 200 Balance -50 -100 Intake: IV 0 Right Forearm 0 Oral 800 100 Output: Urine 850 200 Other: Urine Appearance Clear Urine Color Straw Voiding Method Toilet Bedside Commode # Voids 4 Vital Signs: Last Vital Signs Temp 37.4 C 04/15/16 07:00 Pulse 66 04/15/16 07:00 Resp 18 04/15/16 07:00 BP 148/94 04/15/16 07:00 Pulse Ox 90 04/15/16 07:00 Oxygen Flow Rate 2 Oxygen Delivery Method Room Air - Constitutional General appearance: Present: obese. Absent: acute distress - Head Head exam: Present: normocephalic. Absent: atraumatic (abrasions to left zygomatic and maxillary region) - Eye Eye exam: Present: conjunctival injection (improved), EOMI (eyes are moving well today. ), PERRL, scleral icterus (mild) - ENT ENT exam: Present: mucous membranes moist - Neck Neck exam: Present: full ROM - Respiratory Respiratory exam: Present: decreased breath sounds, rales (left greater than right base). Absent: accessory muscle use, rhonchi, wheezes - Cardiovascular Cardiovascular exam: Present: RRR, systolic murmur (1/6 LLSB). Absent: S3, S4 - GI/Abdominal GI/Abdominal exam: Present: distended, normal bowel sounds, organomegaly (mild hepatomegaly, splenomegaly), soft. Absent: rebound, rigid, tenderness - Extremities Exam Extremities exam: Absent: calf tenderness, edema - Neurological Exam Neurological exam: Present: other (Ongoing tremor involving jaw, bilateral upper extremities, to a lesser extent lower extremities.Muscle tone is normal. Cogwheeling versus superimposed tremor. No disconjugate gaze. No nystagmus. Severe bradykinesia.). Absent: oriented X3 (recurrently disoriented to location ) - Psychiatric Psychiatric exam: Present: flat affect - Skin Skin exam: Present: abrasion ({). Absent: rash - Allied Health Notes Allied health notes reviewed: nursing, PT - Lab Labs: Laboratory Last Values WBC 3.1 X 10^3uL (3.9-10.7) L 04/14/16 06:05 RBC 4.09 X 10^6uL (4.20-6.10) L 04/14/16 06:05 Hgb 15.3 g/dL (12.0-16.0) 04/14/16 06:05 Hct 45.7 % (36.0-48.0) 04/14/16 06:05 MCV 111.8 fL (80.0-100.0) H 04/14/16 06:05 MCH 37.5 pg (29.0-35.0) H 04/14/16 06:05 MCHC 33.5 g/dL (32.0-36.0) 04/14/16 06:05 RDW 16.7 % (11.5-14.5) H 04/14/16 06:05 Plt Count 117 X 10^3uL (130-440) L 04/14/16 06:05 MPV 9.5 fL (7.4-10.4) 04/14/16 06:05 Total Counted 100 04/14/16 06:05 Neutrophils % 73.5 % (54.0-75.0) 04/11/16 05:00 Neutrophils % (Manual) 37 % (54.0-75.0) L 04/14/16 06:05 Band Neuts % (Manual) 11 % (0.0-1.0) H 04/14/16 06:05 Lymphocytes % 9.1 % (20.0-40.0) L 04/11/16 05:00 Lymphocytes % (Manual) 20 % (20.0-40.0) 04/14/16 06:05 Monocytes % (Manual) 28 % (2.0-10.0) H 04/14/16 06:05 Eosinophils % 1.9 % (0.0-6.0) 04/11/16 05:00 Eosinophils % (Manual) 4 % (0.0-6.0) 04/14/16 06:05 Basophils % 2.4 % (0.0-2.0) H 04/11/16 05:00 Neutrophils # 3.7 X 10^3uL (2.6-6.7) 04/11/16 05:00 Lymphocytes # 0.4 X 10^3uL (0.8-3.8) L 04/11/16 05:00 Monocytes 13.1 % (2.0-10.0) H 04/11/16 05:00 Monocytes # 0.6 X 10^3uL (0.2-1.0) 04/11/16 05:00 Eosinophils # 0.1 X 10^3uL (0.0-0.4) 04/11/16 05:00 Basophils # 0.1 X 10^3uL (0.0-0.1) 04/11/16 05:00 Platelet Estimate Decreased 04/14/16 06:05 Macrocytosis 40-69% of cells 04/14/16 06:05 ESR 12 MM/HR (0-20) 04/11/16 05:00 PT 14.8 sec (13.0-16.6) 04/08/16 12:12 INR 1.1 04/08/16 12:12 Sodium 137 mmol/L (137-145) 04/14/16 06:05 Potassium 3.6 mmol/L (3.5-5.1) 04/14/16 06:05 Chloride 109 mmol/L (98-107) H 04/14/16 06:05 Carbon Dioxide 20 mmol/L (22-30) L 04/14/16 06:05 BUN 4 mg/dL (7-17) L 04/14/16 06:05 Creatinine 0.6 mg/dL (0.5-1.0) 04/14/16 06:05 GFR Calculation > 60 mL/min 04/14/16 06:05 Glucose 82 mg/dL (70-100) 04/14/16 06:05 Calcium 9.3 mg/dL (8.4-10.2) 04/14/16 06:05 Phosphorus 4.5 mg/dL (2.5-4.5) 04/14/16 06:05 Magnesium 1.7 mg/dL (1.6-2.3) 04/14/16 06:05 Iron 164 ug/dL (37-170) 04/11/16 05:00 TIBC 229 ug/mL (250-400) L 04/11/16 05:00 Transferrin 154 mg/dL (206-381) L 04/11/16 05:00 Transferrin % Sat 71 % (14-50) H 04/11/16 05:00 Total Bilirubin 4.3 mg/dL (0.2-1.3) H 04/14/16 06:05 Direct Bilirubin 4.9 mg/dL (0.0-0.4) H 04/09/16 05:55 AST 206 U/L (14-36) H 04/14/16 06:05 ALT 51 U/L (9-52) 04/14/16 06:05 Alkaline Phosphatase 338 U/L (38-126) H 04/14/16 06:05 Ammonia < 9 umol/L (9-30) L 04/11/16 05:00 Creatine Kinase 86 U/L (30-135) 04/09/16 05:55 Total Protein 6.7 g/dL (6.3-8.2) 04/14/16 06:05 Albumin 3.2 g/dL (3.5-5.0) L 04/14/16 06:05 Albumin/Globulin Ratio 0.9 04/14/16 06:05 Lipase 1319 U/L (23-300) H 04/11/16 05:00 TSH 10.30 uIU/mL (0.47-4.68) H D 04/08/16 12:12 Ethyl Alcohol 278 mg/dL (<10) H 04/08/16 12:12 Copper See comments (()) 04/12/16 11:40 Anti-Nuclear Antibody See comments (()) 04/10/16 06:50 Hep Bs Antigen Negative (NEGATIVE) 04/10/16 06:50 (1) Alcohol withdrawal Qualifiers: Complication of substance-induced condition: with delirium Qualified Code(s) : F10.231 - Alcohol dependence with withdrawal delirium (4) Leukopenia Qualifiers: Leukopenia type: unspecified Qualified Code(s): D72.819 - Decreased white blood cell count, unspecified
[2016-04-15] MEDS ORDERED: PHOSPHORUS 250 MG TABLET PO ONE (18:22)
[2016-04-15] MEDS ORDERED: KETOROLAC TROMETHAMINE 30 MG/ML VIAL IV ONE (19:34)
[2016-04-16] MEDS: LEVOTHYROXINE 125 MCG TABLET PO SCH (06:11)
[2016-04-16] MEDS: PANTOPRAZOLE 40 MG TABLET PO SCH (06:11)
[2016-04-16 06:34] LABS: MEAN CELL VOLUME 112.6 fL (80.0-100.0); MEAN CORPUS. HGB CONCENTRATION 33.4 g/dL (32.0-36.0); MEAN CORPUSCULAR HEMOGLOBIN 37.6 pg (29.0-35.0); MEAN PLATELET VOLUME 9.4 fL (7.4-10.4); PLATELET COUNT 220 X 10^3uL (130-440); RED BLOOD COUNT 4.26 X 10^6uL (4.20-6.10); RED CELL DISTRIBUTION WIDTH 15.6 % (11.5-14.5); WHITE BLOOD COUNT 3.3 X 10^3uL (3.9-10.7)
[2016-04-16 06:47] LABS: A/G RATIO 0.9; ALBUMIN 3.3 g/dL (3.5-5.0); ALKALINE PHOSPHATASE 333 U/L (38-126); ALT 69 U/L (9-52); AST 151 U/L (14-36); BILIRUBIN, TOTAL 3.2 mg/dL (0.2-1.3); BLOOD UREA NITROGEN 9 mg/dL (7-17); CALCIUM 9.3 mg/dL (8.4-10.2); CHLORIDE 106 mmol/L (98-107); CREATININE 0.8 mg/dL (0.5-1.0); EST GLOMERULAR FILTRATION RATE > 60 mL/min; GLUCOSE 91 mg/dL (70-100); MAGNESIUM 1.7 mg/dL (1.6-2.3); PHOSPHORUS 3.7 mg/dL (2.5-4.5); POTASSIUM 3.5 mmol/L (3.5-5.1); SODIUM 137 mmol/L (137-145)
[2016-04-16 07:09] LABS: BAND% (Manual) 2 % (0.0-1.0); BASOPHIL % (Manual) 1 % (0.0-2.0); EOSINOPHIL % (Manual) 4 % (0.0-6.0); LYMPHOCYTE % (Manual) 11 % (20.0-40.0); MONOCYTE % (Manual) 23 % (2.0-10.0); NEUTROPHIL % (Manual) 59 % (54.0-75.0); PLATELET ESTIMATE ADEQUATE
--- NOTE | 2016-04-16 08:49 | PROGRESS NOTE: IM APSO ---
Assessment and Plan - Date of Encounter Date of Encounter: 04/16/16 (1) Pancreatitis, alcoholic, acute Status: Acute Assessment and plan: Alcoholic pancreatitis. No evidence of ductal stone by ultrasound or MRCP. No current pain or nausea. Advancing diet as tolerated. Continue supportive care. Current Visit: Yes (2) Hepatitis, alcoholic, acute Status: Acute Assessment and plan: Gradually improving. Right upper quadrant ultrasound is positive for fatty infiltration of the liver and gallbladder sludge but no ductal dilatation. MRCP was negative for other explanation. Additional laboratory testing has been ordered. The majority of the send-outs are still pending. However, her iron transferrin saturation is high. Hemochromatosis gene pending. Continue supportive care. Continue to reinforce the need for alcohol abstinence. Current Visit: Yes (3) Pneumonia, bacterial Status: Acute Assessment and plan: Clinically, doing well. No fever. Now saturating well on room air. No wheezing at this time. Antibiotics completed. Follow clinically. Current Visit: Yes (4) COPD exacerbation Status: Acute Current Visit: Yes (5) Leukopenia Status: Acute Assessment and plan: Likely related to bone marrow suppression from alcoholism. Gradually improving off of alcohol. Current Visit: Yes (6) Thrombocytopenia Status: Acute Assessment and plan: Gradually improving off of alcohol. Plt count now over 100. Current Visit: Yes (7) Hypertension, benign Status: Acute Assessment and plan: Elevated blood pressures could represent alcohol withdrawal but persisting in spite of treatment with Librium. Will continue to increase propranolol as this will help with blood pressure and may help with her tremor. Current Visit: Yes (8) Hypothyroidism (acquired) Status: Chronic Assessment and plan: It sounds like she has been taking levothyroxine at 125 g daily for the last month. TSH is elevated. Thyroid medication has been restarted at 125 mcg. Consider increasing dose upon discharge if tremor is reasonably controlled. Current Visit: Yes (9) Chronic pain syndrome Status: Acute Assessment and plan: Chronic neck and thoracic spine pain. Avoiding opiates due to the need for benzodiazepines for alcohol withdrawal. With improvement in liver and platelet count, she is now on low dose ibuprofen with GI prophylaxis and low-dose acetaminophen. Current Visit: Yes (10) Tremor Status: Chronic Assessment and plan: Presenting with significant tremor/ataxia and bradykinesia and weakness which is significantly affecting her functionality. Working with physical therapy. She is not safe for disposition to home at this time, although she is making some slow improvement. CT scan and MRI scan of the brain without any evidence of structural abnormality or other acute process. Treatment of alcohol withdrawal has not resulted in resolution of her tremor/movement disorder. I am concerned about Wernicke's encephalopathy considering her long-standing alcoholism. She was given IV thiamine early in hospitalization, and we will continue orally for now. Continue multivitamin and folate. Therapeutic trial of Sinemet on Saturday without significant improvement. She remains on low-dose Sinemet at this time. Neurology consult today. Will appreciate input from Dr. Nguyen. I remain concerned that this will significantly affect her disposition and long-term prognosis. Current Visit: Yes (11) Alcohol withdrawal Status: Acute Assessment and plan: Improving but still with waxing and waning tremor, elevated blood pressure, mild confusion. Will decrease Librium back to 25 milligrams BID. Continue as needed dosing based upon CIWA scores but decrease to every 4 hours. Continue supportive care. Current Visit: Yes (12) Rash Status: Acute Assessment and plan: Dry skin, and current appearance consistent with eczema. Lotion. Hydrocortisone. She was previously on 2 antibiotics, and these have been stopped. She does remain on low-dose NSAIDs. Current Visit: Yes (13) Depressed Status: Acute Assessment and plan: Significant medical decompensation as previously documented. Increasing evidence of depression with poor motivation, poor oral intake, and suicidal ideation. Started on SSRI last week. Tolerating well. She does not appear to be in imminent danger in the hospital. However,this will effect safe disposition. Current Visit: Yes (14) DVT prophylaxis Status: Acute Assessment and plan: She remains high risk for DVT. With platelet count now will stop SCDs and start Lovenox with prophylactic dosing. Current Visit: Yes - Time Spent With Patient Total time spent with greater than 50% in coordination of care (as documented) at patient's floor/unit and/or counseling patient: Estimated anticipated discharge: Possibly tomorrow IM: PN Subjective General: confusion (better today), tremor (coarse tremor with truncal and extremity ataxia and bradykinesia), no good appetite, no fever, no chills HEENT: no headache Cardiovascular: no chest pain, no palpitations Respiratory: no cough, no wheeze, no SOB Gastrointestinal: constipation (mild, chronic, baseline), no abdominal pain, no bloating, no nausea, no vomiting, no diarrhea Genitourinary: no dysuria Musculoskeletal: pain (chronic neck and thoracic spine) Integumentary: no rashes Neurological: no headache IM: PN Objective Exam - I&O/Vital Signs I&O: Intake & Output 04/15/16 04/16/16 04/16/16 21:59 05:59 13:59 Intake Total 600 100 Output Total 500 300 0 Balance 100 -200 0 Intake: Oral 600 100 Output: Urine 500 300 Stool 0 Other: Urine Appearance Clear Clear Clear Urine Color Yellow Yellow Light Marsha Stool Size Moderate Moderate Stool Characteristics Soft Soft Voiding Method Bedside Commode Bedside Commode Toilet # Bowel Movements 1 Vital Signs: Last Vital Signs Temp 36.6 C 04/16/16 06:52 Pulse 72 04/16/16 06:52 Resp 18 04/16/16 07:39 BP 147/91 04/16/16 06:52 Pulse Ox 90 04/16/16 07:39 Oxygen Flow Rate 2 Oxygen Delivery Method Room Air - Constitutional General appearance: Present: obese. Absent: acute distress - Head Head exam: Present: normocephalic. Absent: atraumatic (abrasions to left zygomatic and maxillary region) - Eye Eye exam: Present: conjunctival injection (improved), scleral icterus - ENT ENT exam: Present: mucous membranes moist - Neck Neck exam: Present: full ROM - Respiratory Respiratory exam: Present: decreased breath sounds, rales (left greater than right base). Absent: accessory muscle use, rhonchi, wheezes - Cardiovascular Cardiovascular exam: Present: RRR, systolic murmur (1/6 LLSB). Absent: S3, S4 - GI/Abdominal GI/Abdominal exam: Present: distended, normal bowel sounds, organomegaly (mild hepatomegaly, splenomegaly), soft. Absent: rebound, rigid, tenderness - Extremities Exam Extremities exam: Absent: calf tenderness, edema - Neurological Exam Neurological exam: Present: other (Ongoing tremor involving jaw, bilateral upper extremities, to a lesser extent lower extremities.Muscle tone is normal. Cogwheeling versus superimposed tremor. No disconjugate gaze. No nystagmus. Bradykinesia.). Absent: oriented X3 (recurrently disoriented to location) - Psychiatric Psychiatric exam: Present: flat affect - Skin Skin exam: Present: abrasion ({), rash (dry scaling skin with patches of erythema, bilateral upper and lower extremities), other (scattered ecchymoses) - Allied Health Notes Allied health notes reviewed: nursing, PT - Lab Labs: Laboratory Last Values WBC 3.3 X 10^3uL (3.9-10.7) L 04/16/16 06:10 RBC 4.26 X 10^6uL (4.20-6.10) 04/16/16 06:10 Hgb 16.0 g/dL (12.0-16.0) 04/16/16 06:10 Hct 48.0 % (36.0-48.0) 04/16/16 06:10 MCV 112.6 fL (80.0-100.0) H 04/16/16 06:10 MCH 37.6 pg (29.0-35.0) H 04/16/16 06:10 MCHC 33.4 g/dL (32.0-36.0) 04/16/16 06:10 RDW 15.6 % (11.5-14.5) H 04/16/16 06:10 Plt Count 220 X 10^3uL (130-440) 04/16/16 06:10 MPV 9.4 fL (7.4-10.4) 04/16/16 06:10 Total Counted 100 04/16/16 06:10 Neutrophils % 73.5 % (54.0-75.0) 04/11/16 05:00 Neutrophils % (Manual) 59 % (54.0-75.0) 04/16/16 06:10 Band Neuts % (Manual) 2 % (0.0-1.0) H 04/16/16 06:10 Lymphocytes % 9.1 % (20.0-40.0) L 04/11/16 05:00 Lymphocytes % (Manual) 11 % (20.0-40.0) L 04/16/16 06:10 Monocytes % (Manual) 23 % (2.0-10.0) H 04/16/16 06:10 Eosinophils % 1.9 % (0.0-6.0) 04/11/16 05:00 Eosinophils % (Manual) 4 % (0.0-6.0) 04/16/16 06:10 Basophils % 2.4 % (0.0-2.0) H 04/11/16 05:00 Basophils % (Manual) 1 % (0.0-2.0) 04/16/16 06:10 Neutrophils # 3.7 X 10^3uL (2.6-6.7) 04/11/16 05:00 Lymphocytes # 0.4 X 10^3uL (0.8-3.8) L 04/11/16 05:00 Monocytes 13.1 % (2.0-10.0) H 04/11/16 05:00 Monocytes # 0.6 X 10^3uL (0.2-1.0) 04/11/16 05:00 Eosinophils # 0.1 X 10^3uL (0.0-0.4) 04/11/16 05:00 Basophils # 0.1 X 10^3uL (0.0-0.1) 04/11/16 05:00 Platelet Estimate Adequate 04/16/16 06:10 Macrocytosis 20-39% of cells 04/16/16 06:10 ESR 12 MM/HR (0-20) 04/11/16 05:00 PT 14.8 sec (13.0-16.6) 04/08/16 12:12 INR 1.1 04/08/16 12:12 Sodium 137 mmol/L (137-145) 04/16/16 06:10 Potassium 3.5 mmol/L (3.5-5.1) 04/16/16 06:10 Chloride 106 mmol/L (98-107) 04/16/16 06:10 Carbon Dioxide 24 mmol/L (22-30) 04/16/16 06:10 BUN 9 mg/dL (7-17) D 04/16/16 06:10 Creatinine 0.8 mg/dL (0.5-1.0) 04/16/16 06:10 GFR Calculation > 60 mL/min 04/16/16 06:10 Glucose 91 mg/dL (70-100) 04/16/16 06:10 Calcium 9.3 mg/dL (8.4-10.2) 04/16/16 06:10 Phosphorus 3.7 mg/dL (2.5-4.5) 04/16/16 06:10 Magnesium 1.7 mg/dL (1.6-2.3) 04/16/16 06:10 Iron 164 ug/dL (37-170) 04/11/16 05:00 TIBC 229 ug/mL (250-400) L 04/11/16 05:00 Transferrin 154 mg/dL (206-381) L 04/11/16 05:00 Transferrin % Sat 71 % (14-50) H 04/11/16 05:00 Total Bilirubin 3.2 mg/dL (0.2-1.3) H 04/16/16 06:10 Direct Bilirubin 4.9 mg/dL (0.0-0.4) H 04/09/16 05:55 AST 151 U/L (14-36) H 04/16/16 06:10 ALT 69 U/L (9-52) H 04/16/16 06:10 Alkaline Phosphatase 333 U/L (38-126) H 04/16/16 06:10 Ammonia < 9 umol/L (9-30) L 04/11/16 05:00 Creatine Kinase 86 U/L (30-135) 04/09/16 05:55 Total Protein 7.0 g/dL (6.3-8.2) 04/16/16 06:10 Albumin 3.3 g/dL (3.5-5.0) L 04/16/16 06:10 Albumin/Globulin Ratio 0.9 04/16/16 06:10 Lipase 1319 U/L (23-300) H 04/11/16 05:00 TSH 10.30 uIU/mL (0.47-4.68) H D 04/08/16 12:12 Ethyl Alcohol 278 mg/dL (<10) H 04/08/16 12:12 Copper See comments (()) 04/12/16 11:40 Anti-Nuclear Antibody See comments (()) 04/10/16 06:50 Hep Bs Antigen Negative (NEGATIVE) 04/10/16 06:50 (1) Pancreatitis, alcoholic, acute Qualifiers: Acute pancreatitis complication: no infection or necrosis Qualified Code(s): K85.20 - Alcohol induced acute pancreatitis without necrosis or infection (5) Leukopenia Qualifiers: Leukopenia type: unspecified Qualified Code(s): D72.819 - Decreased white blood cell count, unspecified (11) Alcohol withdrawal Qualifiers: Complication of substance-induced condition: with delirium Qualified Code(s) : F10.231 - Alcohol dependence with withdrawal delirium (13) Depressed Qualifiers: Depression Type: reactive depression Qualified Code(s): F32.9 - Major depressive disorder, single episode, unspecified
[2016-04-16] MEDS ORDERED: HYDROCORTISONE 1% CREAM 28 APP/28 GM TUBE TOPICAL PRN (09:33)
[2016-04-16] MEDS: MULTIVITAMINS THERAPEUTIC 1 TABLET PO SCH (09:47)
[2016-04-16] MEDS: propRANOLol HCL 10 MG TABLET PO SCH ×3 (09:47→21:45)
[2016-04-16] MEDS: SERTRALINE HCL 50 MG TABLET PO SCH (09:48)
[2016-04-16] MEDS: MAGNESIUM CHLORIDE 71.5 MG PO SCH (09:48)
[2016-04-16] MEDS: IBUPROFEN 200 MG TABLET PO SCH ×3 (09:48→21:42)
[2016-04-16] MEDS: CHLORDIAZEPOXIDE 25 MG CAPSULE PO SCH ×2 (09:48→21:43)
[2016-04-16] MEDS: FOLIC ACID 1 MG TABLET PO SCH (09:48)
[2016-04-16] MEDS: CARBIDOPA/LEVODOPA 25/100 MG 1 TAB TABLET PO SCH ×3 (09:48→21:44)
[2016-04-16] MEDS: NICOTINE 14 MG PATCH TRANSDERM SCH (09:49)
[2016-04-16] MEDS: THIAMINE HCL 50 MG TABLET PO SCH (09:49)
[2016-04-16] MEDS: ERYTHROMYCIN BASE OPHTH 1 GM OINT OPHTHALMIC SCH ×2 (09:50→21:42)
[2016-04-16] MEDS: ENOXAPARIN SODIUM 40 MG/0.4 ML SYR SUBCUT SCH (09:50)
--- NOTE | 2016-04-16 18:31 | CONSULTATION ---
DATE OF CONSULTATION: 04/16/16 [employer] GROWER: Mendel Nguyen MD REASON FOR CONSULTATION: Tremor associated with encephalopathy with complex alcohol-related syndrome. HISTORY OF PRESENT ILLNESS: Patient is a 55-year-old female with a history of multiple medical problems admitted to [facility] by Dr. Martinez . I am seeing her for a consultation on 04/16/16. When she initially presented, her who was with her today, at the time of my assessment, reported that she had a violent tremor and was quite confused. She somewhat improved, but is still no ambulatory. On my review of the records reveal that she has significant signs of liver dysfunction as well as pancreatitis and had pneumonia. Other metabolic and hematologic issues include thrombocytopenia and abnormalities of electrolytes including a slightly low sodium, elevated bilirubin, elevated lipase, and elevated transaminase levels. Her admission blood alcohol level was 278. She has had vitamin supplementation it appears including supplementation of thiamin, but it is difficult to say if the thiamin replacement is a continuing issue at this state. Her tells me that she continues to have significant pain as well. Current medication list was reviewed. It would appear from my review that the patient did have some alcohol withdrawal early on, and has had some improvement in her metabolic parameters including improvement in her hepatic functions, but is still weak and lethargic. Most recent lab work shows persisting elevated bilirubin and lipase. On my exam, the patient has a fairly mild tremor and is diffusely weak and hyporeflexic. Tremor is not necessarily worse with intention, and involves head movement as well as extremity movement. Movement is generally slow and even sitting balance is altered. ASSESSMENT: My assessment is consistent with a Wernickes encephalopathy which does not appear to be associated with of the sort that is usually seen with this syndrome. RECOMMENDATION: My recommendation would be to continue the current vitamin supplementation and appropriate treatment for the pancreatitis and hepatic dysfunction. There are cases of protracted alcohol-related encephalopathy where long-term recovery stays limited, but would appear from my review of current management that she is being adequately managed. wants her to have increase in pain management approaches and that certainly could be considered, although I think adding opioids to the situation is not likely to be beneficial. [id number]
[2016-04-16] MEDS: LIDOCAINE 5% 1 PATCH PATCH TRANSDERM SCH (21:42)
[2016-04-17] MEDS: LEVOTHYROXINE 125 MCG TABLET PO SCH (06:07)
[2016-04-17] MEDS: PANTOPRAZOLE 40 MG TABLET PO SCH (06:07)
[2016-04-17] MEDS: propRANOLol HCL 10 MG TABLET PO SCH ×3 (09:14→20:53)
[2016-04-17] MEDS: THIAMINE HCL 50 MG TABLET PO SCH (09:15)
[2016-04-17] MEDS: CARBIDOPA/LEVODOPA 25/100 MG 1 TAB TABLET PO SCH ×3 (09:15→20:55)
[2016-04-17] MEDS: IBUPROFEN 200 MG TABLET PO SCH ×3 (09:15→20:54)
[2016-04-17] MEDS: SERTRALINE HCL 50 MG TABLET PO SCH (09:15)
[2016-04-17] MEDS: MAGNESIUM CHLORIDE 71.5 MG PO SCH (09:15)
[2016-04-17] MEDS: MULTIVITAMINS THERAPEUTIC 1 TABLET PO SCH (09:16)
[2016-04-17] MEDS: FOLIC ACID 1 MG TABLET PO SCH (09:16)
[2016-04-17] MEDS: LIDOCAINE 5% 1 PATCH PATCH TRANSDERM SCH (09:18)
[2016-04-17] MEDS: ENOXAPARIN SODIUM 40 MG/0.4 ML SYR SUBCUT SCH (09:18)
[2016-04-17] MEDS: CHLORDIAZEPOXIDE 25 MG CAPSULE PO SCH ×2 (09:18→20:49)
[2016-04-17] MEDS: NICOTINE 14 MG PATCH TRANSDERM SCH (09:18)
--- NOTE | 2016-04-17 09:34 | PROGRESS NOTE: IM APSO ---
Assessment and Plan - Date of Encounter Date of Encounter: 04/17/16 (1) Pancreatitis, alcoholic, acute Status: Acute Assessment and plan: Alcoholic pancreatitis. No evidence of ductal stone by ultrasound or MRCP. No current pain or nausea. Tolerating POs. Continue supportive care. Current Visit: Yes (2) Hepatitis, alcoholic, acute Status: Acute Assessment and plan: Gradually improving. Right upper quadrant ultrasound is positive for fatty infiltration of the liver and gallbladder sludge but no ductal dilatation. MRCP was negative for other explanation. Additional laboratory testing has been ordered. The majority of the send-outs are still pending. However, her iron transferrin saturation is high. Hemochromatosis gene pending. Continue supportive care. Continue to reinforce the need for alcohol abstinence. Current Visit: Yes (3) Pneumonia, bacterial Status: Acute Assessment and plan: Clinically, doing well. No fever. Now saturating well on room air. No wheezing at this time. Antibiotics completed. Follow clinically. Current Visit: Yes (4) COPD exacerbation Status: Acute Current Visit: Yes (5) Leukopenia Status: Acute Assessment and plan: Likely related to bone marrow suppression from alcoholism. Gradually improving off of alcohol. Current Visit: Yes (6) Thrombocytopenia Status: Acute Assessment and plan: Gradually improving off of alcohol. Platelet count now over 200. Current Visit: Yes (7) Hypertension, benign Status: Acute Assessment and plan: Elevated blood pressures could represent alcohol withdrawal but persisting in spite of treatment with Librium. Blood pressure is better today. No further changes and propranolol which is helping with blood pressure and also tremor. Current Visit: Yes (8) Hypothyroidism (acquired) Status: Chronic Assessment and plan: It sounds like she has been taking levothyroxine at 125 g daily for the last month. TSH is elevated. Thyroid medication has been restarted at 125 mcg. Consider increasing dose upon discharge if tremor is reasonably controlled. Current Visit: Yes (9) Chronic pain syndrome Status: Acute Assessment and plan: Chronic neck and thoracic spine pain. Avoiding opiates due to the need for benzodiazepines for alcohol withdrawal. With improvement in liver and platelet count, she is now on low dose ibuprofen with GI prophylaxis and low-dose acetaminophen. Lidoderm patch added yesterday, and this has helped some. Current Visit: Yes (10) Tremor Status: Chronic Assessment and plan: Presenting with significant tremor/ataxia and bradykinesia and weakness which is significantly affecting her functionality. Working with physical therapy. She is not safe for disposition to home at this time without 24 hour care, although she is making some slow improvement. CT scan and MRI scan of the brain without any evidence of structural abnormality or other acute process. Treatment of alcohol withdrawal has not resulted in resolution of her tremor/ movement disorder. She was seen by neurology yesterday, and agreed that Wernicke 's encephalopathy is the likely cause. Dr. Nguyen did not comment on Sinemet. Continue thiamine, multivitamin, and folate. Dr. Nguyen did not recommend further evaluation such as LP or transfer to a larger facility. I remain concerned that her movement disorder significantly affect her disposition and long-term prognosis. Current Visit: Yes (11) Alcohol withdrawal Status: Acute Assessment and plan: Improving. Librium now at 25 milligrams BID. Will decrease again tomorrow. Continue as needed dosing based upon CIWA scores (no use yesterday). Continue supportive care. Current Visit: Yes (12) Rash Status: Acute Assessment and plan: Dry skin, and current appearance consistent with eczema. Lotion. Hydrocortisone. She was previously on 2 antibiotics, and these have been stopped. She does remain on low-dose NSAIDs. Current Visit: Yes (13) Depressed Status: Acute Assessment and plan: Significant medical decompensation as previously documented. Increasing evidence of depression with poor motivation, poor oral intake, and suicidal ideation. Started on SSRI last week. Will increase dose today. Tolerating well. She does not appear to be in imminent danger in the hospital. However, this will effect safe disposition. Current Visit: Yes (14) DVT prophylaxis Status: Acute Assessment and plan: She remains high risk for DVT. Lovenox. Current Visit: Yes - Time Spent With Patient Total time spent with greater than 50% in coordination of care (as documented) at patient's floor/unit and/or counseling patient: 16-24 minutes Estimated anticipated discharge: 1-2 days IM: PN Subjective General: confusion (waxing and waning but this morning), tremor (coarse tremor with truncal and extremity ataxia and bradykinesia, better this morning), no good appetite, no fever, no chills HEENT: no headache Cardiovascular: no chest pain, no palpitations Respiratory: no cough, no wheeze, no SOB Gastrointestinal: no abdominal pain, no bloating, no nausea, no vomiting Genitourinary: no dysuria Musculoskeletal: pain (chronic neck and thoracic spine, improved with Lidoderm patch) Integumentary: no rashes Neurological: no headache IM: PN Objective Exam - I&O/Vital Signs I&O: Intake & Output 04/16/16 04/17/16 04/17/16 21:59 05:59 13:59 Intake Total 240 250 Output Total 100 Balance 240 150 Weight 69.088 kg Intake: Oral 240 250 Output: Urine 100 Other: Urine Appearance Clear Urine Color Dark Marsha Voiding Method Bedside Commode # Voids 1 # Bowel Movements 0 Vital Signs: Last Vital Signs Temp 36.1 C L 04/17/16 06:30 Pulse 65 04/17/16 06:30 Resp 11 L 04/17/16 06:30 BP 106/74 04/17/16 06:30 Pulse Ox 94 04/17/16 06:30 Oxygen Flow Rate 1 Oxygen Delivery Method Nasal Cannula - Constitutional General appearance: Present: obese. Absent: acute distress - Head Head exam: Present: normocephalic. Absent: atraumatic (abrasions to left zygomatic and maxillary region) - Eye Eye exam: Present: scleral icterus - ENT ENT exam: Present: mucous membranes moist - Neck Neck exam: Present: full ROM - Respiratory Respiratory exam: Present: decreased breath sounds, rales (left greater than right base). Absent: accessory muscle use, rhonchi, wheezes - Cardiovascular Cardiovascular exam: Present: RRR, systolic murmur (1/6 LLSB). Absent: S3, S4 - GI/Abdominal GI/Abdominal exam: Present: normal bowel sounds, organomegaly (mild hepatomegaly , splenomegaly), soft. Absent: rebound, rigid, tenderness - Extremities Exam Extremities exam: Absent: calf tenderness, edema - Neurological Exam Neurological exam: Present: other (Ongoing tremor involving jaw, bilateral upper extremities, to a lesser extent lower extremities.Muscle tone is normal. Cogwheeling versus superimposed tremor. No disconjugate gaze. No nystagmus. Bradykinesia.). Absent: oriented X3 (recurrently disoriented to location) - Psychiatric Psychiatric exam: Present: flat affect - Skin Skin exam: Present: abrasion ({), rash (dry scaling skin with patches of erythema, bilateral upper and lower extremities), other (scattered ecchymoses) - Allied Health Notes Allied health notes reviewed: nursing, PT, social work - Lab Labs: Laboratory Last Values WBC 3.3 X 10^3uL (3.9-10.7) L 04/16/16 06:10 RBC 4.26 X 10^6uL (4.20-6.10) 04/16/16 06:10 Hgb 16.0 g/dL (12.0-16.0) 04/16/16 06:10 Hct 48.0 % (36.0-48.0) 04/16/16 06:10 MCV 112.6 fL (80.0-100.0) H 04/16/16 06:10 MCH 37.6 pg (29.0-35.0) H 04/16/16 06:10 MCHC 33.4 g/dL (32.0-36.0) 04/16/16 06:10 RDW 15.6 % (11.5-14.5) H 04/16/16 06:10 Plt Count 220 X 10^3uL (130-440) 04/16/16 06:10 MPV 9.4 fL (7.4-10.4) 04/16/16 06:10 Total Counted 100 04/16/16 06:10 Neutrophils % 73.5 % (54.0-75.0) 04/11/16 05:00 Neutrophils % (Manual) 59 % (54.0-75.0) 04/16/16 06:10 Band Neuts % (Manual) 2 % (0.0-1.0) H 04/16/16 06:10 Lymphocytes % 9.1 % (20.0-40.0) L 04/11/16 05:00 Lymphocytes % (Manual) 11 % (20.0-40.0) L 04/16/16 06:10 Monocytes % (Manual) 23 % (2.0-10.0) H 04/16/16 06:10 Eosinophils % 1.9 % (0.0-6.0) 04/11/16 05:00 Eosinophils % (Manual) 4 % (0.0-6.0) 04/16/16 06:10 Basophils % 2.4 % (0.0-2.0) H 04/11/16 05:00 Basophils % (Manual) 1 % (0.0-2.0) 04/16/16 06:10 Neutrophils # 3.7 X 10^3uL (2.6-6.7) 04/11/16 05:00 Lymphocytes # 0.4 X 10^3uL (0.8-3.8) L 04/11/16 05:00 Monocytes 13.1 % (2.0-10.0) H 04/11/16 05:00 Monocytes # 0.6 X 10^3uL (0.2-1.0) 04/11/16 05:00 Eosinophils # 0.1 X 10^3uL (0.0-0.4) 04/11/16 05:00 Basophils # 0.1 X 10^3uL (0.0-0.1) 04/11/16 05:00 Platelet Estimate Adequate 04/16/16 06:10 Macrocytosis 20-39% of cells 04/16/16 06:10 ESR 12 MM/HR (0-20) 04/11/16 05:00 PT 14.8 sec (13.0-16.6) 04/08/16 12:12 INR 1.1 04/08/16 12:12 Sodium 137 mmol/L (137-145) 04/16/16 06:10 Potassium 3.5 mmol/L (3.5-5.1) 04/16/16 06:10 Chloride 106 mmol/L (98-107) 04/16/16 06:10 Carbon Dioxide 24 mmol/L (22-30) 04/16/16 06:10 BUN 9 mg/dL (7-17) D 04/16/16 06:10 Creatinine 0.8 mg/dL (0.5-1.0) 04/16/16 06:10 GFR Calculation > 60 mL/min 04/16/16 06:10 Glucose 91 mg/dL (70-100) 04/16/16 06:10 Calcium 9.3 mg/dL (8.4-10.2) 04/16/16 06:10 Phosphorus 3.7 mg/dL (2.5-4.5) 04/16/16 06:10 Magnesium 1.7 mg/dL (1.6-2.3) 04/16/16 06:10 Iron 164 ug/dL (37-170) 04/11/16 05:00 TIBC 229 ug/mL (250-400) L 04/11/16 05:00 Transferrin 154 mg/dL (206-381) L 04/11/16 05:00 Transferrin % Sat 71 % (14-50) H 04/11/16 05:00 Total Bilirubin 3.2 mg/dL (0.2-1.3) H 04/16/16 06:10 Direct Bilirubin 4.9 mg/dL (0.0-0.4) H 04/09/16 05:55 AST 151 U/L (14-36) H 04/16/16 06:10 ALT 69 U/L (9-52) H 04/16/16 06:10 Alkaline Phosphatase 333 U/L (38-126) H 04/16/16 06:10 Ammonia < 9 umol/L (9-30) L 04/11/16 05:00 Creatine Kinase 86 U/L (30-135) 04/09/16 05:55 Total Protein 7.0 g/dL (6.3-8.2) 04/16/16 06:10 Albumin 3.3 g/dL (3.5-5.0) L 04/16/16 06:10 Albumin/Globulin Ratio 0.9 04/16/16 06:10 Lipase 1319 U/L (23-300) H 04/11/16 05:00 TSH 10.30 uIU/mL (0.47-4.68) H D 04/08/16 12:12 Ethyl Alcohol 278 mg/dL (<10) H 04/08/16 12:12 Copper See comments (()) 04/12/16 11:40 Anti-Nuclear Antibody See comments (()) 04/10/16 06:50 Hep Bs Antigen Negative (NEGATIVE) 04/10/16 06:50 (1) Pancreatitis, alcoholic, acute Qualifiers: Acute pancreatitis complication: no infection or necrosis Qualified Code(s): K85.20 - Alcohol induced acute pancreatitis without necrosis or infection (5) Leukopenia Qualifiers: Leukopenia type: unspecified Qualified Code(s): D72.819 - Decreased white blood cell count, unspecified (11) Alcohol withdrawal Qualifiers: Complication of substance-induced condition: with delirium Qualified Code(s) : F10.231 - Alcohol dependence with withdrawal delirium (13) Depressed Qualifiers: Depression Type: reactive depression Qualified Code(s): F32.9 - Major depressive disorder, single episode, unspecified
[2016-04-17 11:33] LABS: CERULOPLASMIN SEE COMMENTS (()); HEPATITIS A IGM ONLY Negative (Negative); HEPATITIS A TOTAL AB SEE COMMENTS (()); HEPATITIS B CORE IGM AB SEE COMMENTS (()); HEPATITIS B CORE TOTAL AB SEE COMMENTS (()); HEPATITIS B SURFACE AB SEE COMMENTS (()); HEPATITIS Be AB SEE COMMENTS (()); HEPATITIS Be AG Negative (Negative); HEPATITIS C TOTAL AB SEE COMMENTS (()); MITOCHONDRIAL ANTIBODIES M2 SEE COMMENTS (()); SMOOTH MUSCLE ANTIBODIES SEE COMMENTS (())
[2016-04-17 14:06] LABS: 25 HYDROXY VITAMIN D 10.6 ng/mL
[2016-04-17] MEDS: CHOLECALCIFEROL 1,000 UNIT CAPSULE PO SCH (20:52)
[2016-04-17] MEDS: SENNOSIDES/DOCUSATE SODIUM 1 TAB TABLET PO SCH (20:55)
[2016-04-18] MEDS: PANTOPRAZOLE 40 MG TABLET PO SCH (05:47)
[2016-04-18] MEDS: LEVOTHYROXINE 125 MCG TABLET PO SCH (05:47)
[2016-04-18 06:03] LABS: A/G RATIO 0.9; ALKALINE PHOSPHATASE 260 U/L (38-126); ALT 41 U/L (9-52); AST 94 U/L (14-36); BILIRUBIN, TOTAL 2.1 mg/dL (0.2-1.3); BLOOD UREA NITROGEN 8 mg/dL (7-17); CALCIUM 9.5 mg/dL (8.4-10.2); CHLORIDE 106 mmol/L (98-107); CREATININE 0.8 mg/dL (0.5-1.0); EST GLOMERULAR FILTRATION RATE > 60 mL/min; GLUCOSE 95 mg/dL (70-100); LIPASE 1076 U/L (23-300); MAGNESIUM 1.9 mg/dL (1.6-2.3); PHOSPHORUS 4.1 mg/dL (2.5-4.5); POTASSIUM 3.8 mmol/L (3.5-5.1); SODIUM 135 mmol/L (137-145); TOTAL PROTEIN 6.5 g/dL (6.3-8.2)
[2016-04-18 06:51] LABS: HEMATOCRIT 44.2 % (36.0-48.0); HEMOGLOBIN 14.3 g/dL (12.0-16.0); RED BLOOD COUNT 3.72 X 10^6uL (4.20-6.10); WHITE BLOOD COUNT 3.8 X 10^3uL (3.9-10.7)
[2016-04-18 06:52] LABS: BAND% (Manual) 5 % (0.0-1.0); BASOPHIL % (Manual) 2 % (0.0-2.0); EOSINOPHIL % (Manual) 2 % (0.0-6.0); LYMPHOCYTE % (Manual) 13 % (20.0-40.0); MEAN CORPUS. HGB CONCENTRATION 32.4 g/dL (32.0-36.0); MEAN CORPUSCULAR HEMOGLOBIN 38.5 pg (29.0-35.0); MONOCYTE % (Manual) 5 % (2.0-10.0); NEUTROPHIL % (Manual) 48 % (54.0-75.0); PLATELET COUNT 231 X 10^3uL (130-440); PLATELET ESTIMATE ADEQUATE
[2016-04-18] MEDS ORDERED: POLYETHYLENE GLYCOL 3350 17 GM POWD.PACK ONE (08:34)
[2016-04-18] MEDS ORDERED: POLYETHYLENE GLYCOL 3350 17 GM POWD.PACK PO PRN (08:42)
[2016-04-18] MEDS: ENOXAPARIN SODIUM 40 MG/0.4 ML SYR SUBCUT SCH (08:48)
[2016-04-18] MEDS: NICOTINE 14 MG PATCH TRANSDERM SCH (08:48)
[2016-04-18] MEDS: FOLIC ACID 1 MG TABLET PO SCH (08:50)
[2016-04-18] MEDS: MULTIVITAMINS THERAPEUTIC 1 TABLET PO SCH (08:50)
[2016-04-18] MEDS: CHLORDIAZEPOXIDE 25 MG CAPSULE PO SCH (08:50)
[2016-04-18] MEDS: MAGNESIUM CHLORIDE 71.5 MG PO SCH (08:50)
[2016-04-18] MEDS: CARBIDOPA/LEVODOPA 25/100 MG 1 TAB TABLET PO SCH ×2 (08:51→14:41)
[2016-04-18] MEDS: THIAMINE HCL 50 MG TABLET PO SCH (08:51)
[2016-04-18] MEDS: propRANOLol HCL 10 MG TABLET PO SCH ×2 (08:51→14:41)
[2016-04-18] MEDS: SENNOSIDES/DOCUSATE SODIUM 1 TAB TABLET PO SCH (08:51)
[2016-04-18] MEDS: CHOLECALCIFEROL 1,000 UNIT CAPSULE PO SCH (08:51)
[2016-04-18] MEDS: IBUPROFEN 200 MG TABLET PO SCH ×2 (08:52→14:40)
[2016-04-18] MEDS ORDERED: SERTRALINE HCL 50 MG TABLET PO SCH (09:00)
[2016-04-18] MEDS ORDERED: LIDOCAINE 5% 1 PATCH PATCH TRANSDERM SCH (09:00)
[2016-04-18 10:27] VITALS: O2SAT 92
--- NOTE | 2016-04-18 11:30 | DC SUMMARY: IM Note ---
Discharge Summary: IM/Peds Provider: Date of Admission: 04/08/16 Admitting Provider: CHAVA CARCAMO MD Attending Provider: CHAVA CARCAMO MD Discharging Provider: CHAVA CARCAMO MD Primary Care Provider: Discharge Date: 04/18/16 Consults: 04/08/16 19:58 Nutrition/Dietary Consult [CONS] Routine Reason: POOR APPETITE RECENTLY 04/10/16 17:41 Neurology Consult [CONS] Routine Reason: Severe tremor. Decreased strength and coordination. History of alcoholism. History of CHI. 04/11/16 09:49 Kettle Operator Head Consult [CONS] Routine Reason: Pancreatitis, hepatitis, pneumonia, alcohol withdrawal, alcoholism. May need long-term placement. Consideration for long-term care Medicaid. - Diagnosis (1) Pancreatitis, alcoholic, acute Status: Acute Qualifiers: Acute pancreatitis complication: no infection or necrosis Qualified Code(s): K85.20 - Alcohol induced acute pancreatitis without necrosis or infection (2) Hepatitis, alcoholic, acute Status: Acute (3) Pneumonia, bacterial Status: Acute (4) COPD exacerbation Status: Acute (5) Leukopenia Status: Acute Qualifiers: Leukopenia type: unspecified Qualified Code(s): D72.819 - Decreased white blood cell count, unspecified (6) Thrombocytopenia Status: Acute (7) Hypertension, benign Status: Acute (8) Hypothyroidism (acquired) Status: Chronic (9) Chronic pain syndrome Status: Acute (10) Tremor Status: Chronic (11) Alcohol withdrawal Status: Acute Qualifiers: Complication of substance-induced condition: with delirium Qualified Code(s): F10.231 - Alcohol dependence with withdrawal delirium (12) Rash Status: Acute (13) Depressed Status: Acute Qualifiers: Depression Type: reactive depression Qualified Code(s): F32.9 - Major depressive disorder, single episode, unspecified (14) DVT prophylaxis Status: Acute Hospital Course: Patient presented to the emergency department for tremor but was admitted for a host of problems. On admission, she had evidence of alcoholic pancreatitis. In addition to alcohol abstinence, she was treated with bowel rest and IV fluid support. She did not have significant pain or nausea in spite of lipase above 4000. Right upper quadrant ultrasound showed evidence but no biliary dilatation. She did have some evidence of gallbladder sludge but no stones. A follow-up MRCP based upon worsening LFTs and bilirubin again showed fatty liver without evidence of any biliary obstruction or stones by that study. Gradually, her lipase improved and was down to 1000 time of discharge. [place] through her hospitalization, she was started on oral intake and tolerated this well. She can be followed clinically in the outpatient setting. She has been counseled regarding the need for alcohol abstinence, and this is her current intent. She has been given information regarding outpatient alcohol related debilitation options. She also had evidence of alcoholic hepatitis and was treated conservatively. Imaging studies were as above. Additional laboratory studies were undertaken for other possible causes of hepatitis. Negative for viral hepatitides. Negative for evidence of autoimmune hepatitis. No evidence of copper storage disease. Of note, her iron percent saturation level was somewhat elevated. Hemochromatosis gene evaluation was undertaken and is still pending at the time of this dictation. Her liver tests were approaching normal at the time of discharge including her bilirubin. Her albumin levels were good throughout hospitalization, and her PT/INR was not significantly elevated. She was also found to have pneumonia at the time of admission with bilateral lower lobe infiltrates. She had a mild oxygen requirement on admission. Cultures remained negative throughout hospitalization. She was treated empirically with ceftriaxone and azithromycin. At the time of discharge, she was no longer on oxygen and had completed her antibiotics. She does not have any current pulmonary symptoms. Smoking abstinence has been recommended, and she was treated with nicotine patch during her hospitalization. With regard to alcohol withdrawal, considering maintained functional status of liver, she was treated with chlordiazepoxide with a slow taper. This was effective at relieving withdrawal symptoms with the exception of tremor as discussed below. She will receive 25 milligrams of chlordiazepoxide daily for another 4 days on discharge. Again, considerable time was spent regarding counseling toward alcohol abstinence. Formal programs have been recommended. She intends to undertake this on her own with the help of friends and family, and she is aware of the risks of this approach. With regard to her tremor, this was atypical for alcohol withdrawal tremor and more consistent with cerebellar tremor and ataxia. She also had evidence of bradykinesia and possibly some cogwheeling. CT scan of the brain did not show any acute findings. MRI scan of the brain likewise was negative. As per usual protocol, she had been treated with vitamin supplementation including thiamine starting in the emergency department. Extensive labs did not show another explanation for tremor. TSH was somewhat elevated as below. Ultimately, she underwent neurology consultation who concurred that this was most likely alcohol -related and possibly Wernicke's encephalopathy without evidence of significant Korsakoff syndrome. Her weakness and ataxia and difficulty controlling her extremities is a significant limiting factor for her, and she worked with physical therapy and occupational therapy toward increased functionality. At the time of discharge, she still requires 24-hour care, and this will be provided by family and friends. She will also have ongoing home health care with PT and OT. Depending upon her progress, she may need to be considered for an alternate living situation. She will be continued on vitamin/mineral supplementation including multivitamin, thiamine, folate, vitamin D, and magnesium. Of note, considering the tremor and bradykinesia, she was started empirically on a trial of low-dose Sinemet. It is unclear if this has been significantly helpful. Neurology has recommended continuing this for now. She should be reevaluated by neurology (Dr. Ochoa) in one month. 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 These gradually improved over the course of hospitalization with supportive care. She did not demonstrate evidence of anemia and had no evidence of bleeding. Her platelet count had normalized by discharge. Her white blood count remains somewhat low. On the last day of hospitalization, manual evaluation of her differential showed 25% atypical lymphs. This will be sent to pathology for review, and the significance is unclear. Again, suspect that this is due to bone marrow alcohol toxicity. With regard to hypertension, she was treated with alcohol withdrawal protocol. Considering her tremor and elevated blood pressure, she was started on propranolol, and this was titrated to 40 milligrams 3 times a day. Blood pressure was reasonable at the time of discharge. This appears to have helped some with her tremor. With regard to her thyroid, she states that she was previously on 125 micrograms of levothyroxine, and this was continued during hospitalization. TSH was above 10 on admission, but it is unclear how consistently she was taking this medication. This will be rechecked in one month in the outpatient setting. With regard to disposition, she wishes to be discharged to home in spite of her current medical needs rather than placement in a long-term care facility. She has arranged for friends and family to help support her in the coming weeks. There is discussion of transitioning her back to [place] to be closer to family. Home health care with nursing, aide, PT, OT, and social work has been arranged. In terms of follow-up, she will set up a follow-up visit with her primary care provider at [facility] in 1 week. Labs have been ordered for 1 week and 3 weeks. Pending results include pathology evaluation of atypical lymphocytes and also hemochromatosis gene analysis. Time spent discussing smoking cessation with patient: 3 to 10 minutes - Time Spent with Patient Total time spent providing and/or coordinating discharge services: Time with patient DS: Less than 30 minutes Specific discharge activities: Ambulate with assistance only. Use walker. No alcohol. No tobacco. Discharge - Patient/Caregiver Discharge Instructions Activity Level: As tolerated with assistance. Diet: [place], low-fat for now. Additional Instructions: Consider formal alcohol rehabilitation program. Follow up: TEMITOPE OCHOA MD [MD] - Next Appointment (Approximately one month.) Odilia HIDALGO [MD] - 7 Days Overall discharge status: patient is not back to baseline Print Language: OCCITAN Home Medications: Folic Acid [Folic Acid*] 1 mg PO DAILY #30 tab propRANOLol HCL [Inderal] 40 mg PO TID #90 tablet Chlordiazepoxide HCl [Librium*] 25 mg PO DAILY #4 capsule Lidocaine 5% [Lidoderm 5%*] 1 - 3 patch TRANSDERM DAILY #90 patch Nicotine [Nicotine 14 mg*] 14 mg TRANSDERM DAILY #30 patch Omeprazole Magnesium [Prilosec Otc] 20 mg PO DAILY #30 tab Carbidopa/Levodopa [Sinemet 10-100 mg Tablet] 1 each PO TID #90 tablet Magnesium Chloride [Slow-Mag*] 71.5 mg PO DAILY #30 tab Levothyroxine [Synthroid] 125 mcg PO DAILY@0630 #30 tablet Thiamine HCl [Vitamin B1*] 100 mg PO DAILY #30 tablet Sertraline HCl [Zoloft*] 50 mg PO DAILY #30 tablet Orders: Home Health Care Location: Determined By Patient Disposition: HOME, SELF-CARE 1. Medical reason for no anticoagulation order on D/C?: Treatment not indicated 2. Medical reason for no anticoag overlap on D/C?: Treatment not indicated Discharge Summary Data - Medication History Medication History: Home Medications Carbidopa/Levodopa [Sinemet 10-100 mg Tablet] 1 each PO TID #90 tablet 04/18/16 Chlordiazepoxide HCl [Librium*] 25 mg PO DAILY #4 capsule 04/18/16 Cholecalciferol [Vitamin D*] 2,000 unit PO DAILY capsule 04/18/16 Folic Acid [Folic Acid*] 1 mg PO DAILY #30 tab 04/18/16 Hydrocortisone 1% Cream [Cortisone 1% Cream*] 1 tonia TOPICAL BID PRN #0 tube 09/27 Ibuprofen [Ibuprofen*] 200 mg PO TID tablet 04/18/16 Levothyroxine [Synthroid] 125 mcg PO DAILY@0630 #30 tablet 04/18/16 Lidocaine 5% [Lidoderm 5%*] 1 - 3 patch TRANSDERM DAILY #90 patch 04/18/16 Magnesium Chloride [Slow-Mag*] 71.5 mg PO DAILY #30 tab 04/18/16 Multivitamins,Therapeutic [Thera Multivitamin*] 1 tab PO DAILY tablet 04/18/16 Nicotine [Nicotine 14 mg*] 14 mg TRANSDERM DAILY #30 patch 04/18/16 Omeprazole Magnesium [Prilosec Otc] 20 mg PO DAILY #30 tab 04/18/16 Sertraline HCl [Zoloft*] 50 mg PO DAILY #30 tablet 04/18/16 Thiamine HCl [Vitamin B1*] 100 mg PO DAILY #30 tablet 04/18/16 propRANOLol HCL [Inderal] 40 mg PO TID #90 tablet 04/18/16 Inpatient Medications 04/09/16 06:30 Levothyroxine [Synthroid] 125 mcg PO DAILY@0630 04/09/16 09:00 Folic Acid [Folate] 1 mg PO DAILY 04/11/16 09:55 Chlordiazepoxide HCl [Librium] 25 mg PO Q4H PRN 04/11/16 10:00 Multivitamins,Therapeutic [Thera] 1 tab PO DAILY 04/12/16 14:00 Nicotine [Nicoderm Patch] 14 mg TRANSDERM DAILY 04/13/16 09:00 Carbidopa/Levodopa 25/100 mg [Sinemet 25/100] 0.5 tab PO TID Ibuprofen [Motrin] 200 mg PO TID Thiamine HCl [Vitamin B1] 100 mg PO DAILY 04/14/16 06:30 Pantoprazole [Protonix] 40 mg PO BEFORE BREAKFAST 04/16/16 08:55 propRANOLol HCL [Inderal] 40 mg PO TID 04/16/16 09:00 Chlordiazepoxide HCl [Librium] 25 mg PO BID Enoxaparin Sodium [Lovenox] 40 mg SUBCUT DAILY Magnesium Chloride [Slow-Mag] 71.5 mg PO DAILY 04/16/16 09:33 Hydrocortisone 1% Cream [Cortisone 1% Cream] 1 tonia TOPICAL BID PRN 04/17/16 18:00 Cholecalciferol [Vitamin D3] 2,000 unit PO DAILY 04/17/16 21:00 Sennosides/Docusate Sodium [Sandrine-Colace] 1 tab PO BID 04/18/16 08:42 Polyethylene Glycol 3350 [miraLAX] 17 gm PO DAILY PRN 04/18/16 09:00 Lidocaine 5% [Lidoderm 5%] 1 - 3 patch TRANSDERM DAILY Sertraline HCl [Zoloft] 50 mg PO DAILY Procedures and tests throughout hospitalization: Completed Lab Orders 04/08/16 12:12 PHOSPHORUS [CHEM] Urgent TSH [THYROID STIMULATING HORMONE] [CHEM] Urgent 04/09/16 05:55 CREATINE KINASE [CHEM] AMDRAW LFT [HEPATIC PANEL] [CHEM] AMDRAW LIPASE [CHEM] AMDRAW MAGNESIUM [CHEM] AMDRAW PHOSPHORUS [CHEM] AMDRAW 04/10/16 05:00 CBC AUTO DIF, MDIF/RMOR IF IND [HEM] AMDRAW LIPASE [CHEM] AMDRAW PHOSPHORUS [CHEM] AMDRAW cmp [COMPREHENSIVE METABOLIC PANEL] [CHEM] AMDRAW mag [MAGNESIUM] [CHEM] AMDRAW 04/10/16 06:50 ANTI NUCLEAR ANTIBODY [SEND] Routine HEPATITIS B SURFACE ANTIGEN [CHEM] Routine 04/11/16 05:00 ALPHA 1 ANTITRYPSIN, PHENOTYPE [SEND] AMDRAW AMMONIA LEVEL [CHEM] AMDRAW CBC AUTO DIF, MDIF/RMOR IF IND [HEM] AMDRAW CERULOPLASMIN [SEND] AMDRAW ERYTHROCYTE SEDIMENTATION RATE [HEM] Routine HEPATITIS A IGM ONLY [SEND] AMDRAW HEPATITIS A TOTAL AB [SEND] AMDRAW HEPATITIS B CORE IGM AB [SEND] AMDRAW HEPATITIS B CORE TOTAL AB [SEND] AMDRAW HEPATITIS B SURFACE AB [SEND] AMDRAW HEPATITIS Be AB [SEND] AMDRAW HEPATITIS Be AG [SEND] AMDRAW HEPATITIS C TOTAL AB [SEND] AMDRAW IRON PANEL [CHEM] Routine LIPASE [CHEM] AMDRAW MAGNESIUM [CHEM] AMDRAW MITOCHONDRIAL ANTIBODIES M2 [SEND] AMDRAW PHOSPHORUS [CHEM] AMDRAW SMOOTH MUSCLE ANTIBODIES [SEND] AMDRAW cmp [COMPREHENSIVE METABOLIC PANEL] [CHEM] AMDRAW 04/12/16 05:00 PHOSPHORUS [CHEM] AMDRAW cmp [COMPREHENSIVE METABOLIC PANEL] [CHEM] AMDRAW mag [MAGNESIUM] [CHEM] AMDRAW 04/12/16 11:40 COPPER [SEND] Routine 04/14/16 06:05 CBC W/ MANUAL DIFFERENTIAL [HEM] Routine PHOSPHORUS [CHEM] AMDRAW cmp [COMPREHENSIVE METABOLIC PANEL] [CHEM] AMDRAW mag [MAGNESIUM] [CHEM] AMDRAW 04/16/16 06:10 25 HYDROXY VITAMIN D [CHEM] Routine CBC W/ MANUAL DIFFERENTIAL [HEM] AMDRAW COMPREHENSIVE METABOLIC PANEL [CHEM] AMDRAW MAGNESIUM [CHEM] AMDRAW PHOSPHORUS [CHEM] AMDRAW VITAMIN B12 [CHEM] Routine Completed Imaging Orders 04/09/16 15:44 US ABD LIMITED [id number] [US] Routine 04/10/16 08:00 MRCP W/WO [MRI] Urgent 04/10/16 08:01 MRI [BRAIN W/WO CONTRAST [id number]] [MRI] Urgent Pending Orders 04/08/16 14:40 Implement Seizure Precautions . 04/08/16 14:41 Fall Risk - High Risk QSHIFT Price Lister Consult [CM] Routine 04/08/16 15:35 CIWA Assessment Q4H 04/08/16 19:58 Nutrition/Dietary Consult [CONS] Routine 04/09/16 06:30 Levothyroxine [Synthroid] 125 mcg PO DAILY@0630 04/09/16 09:00 Folic Acid [Folate] 1 mg PO DAILY 04/10/16 08:09 Occupation Therapy Eval and Treat [OT] Routine 04/10/16 17:41 Neurology Consult [CONS] Routine 04/10/16 18:03 Physical Therapy Plan of Care [PT] Routine 04/11/16 09:48 Activity: Ambulate with Assist TID 04/11/16 09:49 Kettle Operator Head Consult [CONS] Routine 04/11/16 09:55 Chlordiazepoxide HCl [Librium] 25 mg PO Q4H PRN 04/11/16 10:00 Multivitamins,Therapeutic [Thera] 1 tab PO DAILY 04/11/16 12:38 Occupational Therapy Plan of Care [OT] Routine 04/12/16 05:00 HEMOCHROMATOSIS HFE GENE, B [SEND] AMDRAW 04/12/16 14:00 Nicotine [Nicoderm Patch] 14 mg TRANSDERM DAILY 04/12/16 Lunch Regular [DIET] 04/13/16 09:00 Carbidopa/Levodopa 25/100 mg [Sinemet 25/100] 0.5 tab PO TID Ibuprofen [Motrin] 200 mg PO TID Thiamine HCl [Vitamin B1] 100 mg PO DAILY 04/14/16 06:30 Pantoprazole [Protonix] 40 mg PO BEFORE BREAKFAST 04/16/16 06:10 HOMOCYSTEINE [SEND] AMDRAW METHYLMALONIC ACID, QUANT [SEND] AMDRAW 04/16/16 08:55 propRANOLol HCL [Inderal] 40 mg PO TID 04/16/16 09:00 Chlordiazepoxide HCl [Librium] 25 mg PO BID Enoxaparin Sodium [Lovenox] 40 mg SUBCUT DAILY Magnesium Chloride [Slow-Mag] 71.5 mg PO DAILY 04/16/16 09:32 Miscellaneous Care Order BID 04/16/16 09:33 Hydrocortisone 1% Cream [Cortisone 1% Cream] 1 tonia TOPICAL BID PRN 04/17/16 18:00 Cholecalciferol [Vitamin D3] 2,000 unit PO DAILY 04/17/16 21:00 Sennosides/Docusate Sodium [Sandrine-Colace] 1 tab PO BID 04/18/16 05:35 CBC W/ MANUAL DIFFERENTIAL [HEM] Stat LIPASE [CHEM] AMDRAW PHOSPHORUS [CHEM] AMDRAW cmp [COMPREHENSIVE METABOLIC PANEL] [CHEM] AMDRAW mag [MAGNESIUM] [CHEM] AMDRAW 04/18/16 08:42 Polyethylene Glycol 3350 [miraLAX] 17 gm PO DAILY PRN 04/18/16 09:00 Lidocaine 5% [Lidoderm 5%] 1 - 3 patch TRANSDERM DAILY Sertraline HCl [Zoloft] 50 mg PO DAILY Labs on day of discharge: Labs from last 24 hours 04/18/16 04/16/16 04/11/16 05:35 06:10 05:00 WBC 3.8 L RBC 3.72 L Hgb 14.3 Hct 44.2 MCV 119.0 H D MCH 38.5 H MCHC 32.4 RDW Not Reportable Plt Count 231 MPV Not Reportable Total Counted 100 Neutrophils % Cancelled Neutrophils % (Manual) 48 L Band Neuts % (Manual) 5 H Lymphocytes % Cancelled Lymphocytes % (Manual) 13 L Atypical Lymphs % (Man) Pending Monocytes % (Manual) 5 Eosinophils % Cancelled Eosinophils % (Manual) 2 Basophils % Cancelled Basophils % (Manual) 2 Neutrophils # Cancelled Lymphocytes # Cancelled Monocytes Cancelled Monocytes # Cancelled Eosinophils # Cancelled Basophils # Cancelled Platelet Estimate Adequate Anisocytosis 20-39% of cells Macrocytosis 20-39% of cells Sodium 135 L Potassium 3.8 Chloride 106 Carbon Dioxide 25 BUN 8 Creatinine 0.8 GFR Calculation > 60 Glucose 95 Calcium 9.5 Phosphorus 4.1 Magnesium 1.9 Total Bilirubin 2.1 H AST 94 H ALT 41 Alkaline Phosphatase 260 H Total Protein 6.5 Albumin 3.0 L Albumin/Globulin Ratio 0.9 Alpha-1-AT Phenotype See comments Ceruloplasmin See comments Lipase 1076 H Vitamin B12 1490 H Total 25-OH Vitamin D 10.6 Anti-Mitochondrial Ab See comments Anti-Smooth Muscle Ab See comments Hepatitis A IgM Ab Negative Hepatitis A Ab Total See comments Hep Bs Antibody See comments Hep B Core Total Ab See comments Hep B Core IgM Ab Conf See comments Hepatitis Be Antibody See comments Hepatitis Be Antigen Negative Hepatitis C Antibody See comments IM: Discharge Physical Exam - I&O/Vital Signs I&O: Intake & Output 04/17/16 04/18/16 04/18/16 21:59 05:59 13:59 Intake Total 1000 275 Output Total 900 Balance 100 275 Weight 68.039 kg Intake: Oral 1000 275 Output: Urine 900 Stool 0 Other: Urine Appearance Clear Clear Clear Urine Color Dark Marsha Yellow Yellow Stool Size Moderate Stool Characteristics Soft Voiding Method Bedside Commode Toilet # Voids 3 3 # Bowel Movements 0 0 Vital Signs: Last Vital Signs Temp 36.3 C L 04/18/16 06:21 Pulse 61 04/18/16 06:21 Resp 20 04/18/16 09:00 BP 148/98 04/18/16 06:21 Pulse Ox 92 04/18/16 09:00 Oxygen Flow Rate 1 Oxygen Delivery Method Room Air - Constitutional General appearance: Present: obese. Absent: acute distress - Head Head exam: Present: normocephalic. Absent: atraumatic (abrasions to left zygomatic and maxillary region) - Eye Eye exam: Present: scleral icterus - ENT ENT exam: Present: mucous membranes moist - Neck Neck exam: Present: full ROM - Respiratory Respiratory exam: Present: decreased breath sounds, rales (left greater than right base). Absent: accessory muscle use, rhonchi, wheezes - Cardiovascular Cardiovascular exam: Present: RRR, systolic murmur (1/6 LLSB). Absent: S3, S4 - GI/Abdominal GI/Abdominal exam: Present: normal bowel sounds, organomegaly (mild hepatomegaly , splenomegaly), soft. Absent: rebound, rigid, tenderness - Extremities Exam Extremities exam: Absent: calf tenderness, edema - Neurological Exam Neurological exam: Present: other (Ongoing tremor involving jaw, bilateral upper extremities, to a lesser extent lower extremities.Muscle tone is normal. Cogwheeling versus superimposed tremor. No disconjugate gaze. No nystagmus. Bradykinesia.). Absent: oriented X3 (recurrently disoriented to location) - Psychiatric Psychiatric exam: Present: flat affect - Skin Skin exam: Present: abrasion ({), rash (dry scaling skin with patches of erythema, bilateral upper and lower extremities), other (scattered ecchymoses) - Allied Health Notes Allied health notes reviewed: nursing, PT, social work
[2016-04-18 12:31] VITALS: BP 107/81; PULSE 66; RESP 16; TEMP 97.8
[2016-04-19 09:29] LABS: HOMOCYSTEINE 11.9 umol/L (4.7-12.6)
== END 2016-04-18 11:33 | disposition home health service (06) | DRG 438 ==
LOC: ER 10:31 → IN 14:31 → EEVIPCON 14:31
PROVIDERS: ADMIT Internal Medicine; ATTEND Internal Medicine
DX: K85.20 Alcohol induced acute pancreatitis without necrosis or infection (principal); J15.9 Unspecified bacterial pneumonia; E51.2 Wernicke's encephalopathy; F10.230 Alcohol dependence with withdrawal, uncomplicated; J44.0 Chronic obstructive pulmonary disease with (acute) lower respiratory infection; G25.2 Other specified forms of tremor; K70.10 Alcoholic hepatitis without ascites; I10 Essential (primary) hypertension; E03.9 Hypothyroidism, unspecified; D69.6 Thrombocytopenia, unspecified; D72.829 Elevated white blood cell count, unspecified; M54.6 Pain in thoracic spine; F10.220 Alcohol dependence with intoxication, uncomplicated; F12.90 Cannabis use, unspecified, uncomplicated; M54.2 Cervicalgia; F32.89 Other specified depressive episodes; G89.29 Other chronic pain; L85.3 Xerosis cutis
CPT/HCPCS: 36415; 70450; 70553; 71010; 72125; 72128; 74183; 76705; 80048; 80053; 80076; 80320; 81256; 82103; 82104; 82140; 82306; 82390; 82525; 82550; 82607; 83090; 83516; 83540; 83690; 83735; 83921; 84100; 84443; 84466; 85007; 85025; 85027; 85610; 85651; 86039; 86255; 86704; 86705; 86706; 86707; 86708; 86709; 86803; 87340; 87350; 93005; 93041; 94640; 96365; 96375; 99285; E0555; J0456; J0696; J1650; J1885; J2405; J3475; J3480; J7030; J7050; J7620; J7644; Q0144; S4990